=== PATIENT | female | born 1940 | race Caucasian/White ===

== ENCOUNTER 2020-07-02 10:45 | Outpatient (REF) | payer MEDICARE, OTHER, SELFPAY ==
--- NOTE | 2020-07-02 13:46 | MHC.AU.ANO ---
Adult Audiological Evaluation Date of Visit: 07/02/20 Reason for Appointment: Patient has been experiencing increasing hearing difficulty over the last several years. She finds that she needs repetition more frequently. Her family has been expressing frustration during conversations. Patient feels her left ear is worse than the right. She has tried using a personal amplifier, and finds that it made many sounds too loud. Hearing Handicap Inventory: HHIE SCORE: 22 Based on HHIE score, patient has: Mild to moderate perceived hearing handicap Ear History: Ear Deformity: None Reported Recent Ear Drainage: None Reported Recent Ear Pain: None Reported Recent Ear Infections: None Reported Ear Infections in Childhood: None Reported History of Ear Wax Buildup: None Reported Previous Ear Surgery: None Reported Bothersome Tinnitus/Ringing/Noises in Ears: Left Ear Ear used on the phone: Right Ear Blocked/Full Sensation in Ear(s): Left Ear History of occupational noise exposure?: No History: No Otoscopy: Right Ear: Unremarkable Left Ear: Unremarkable Tympanometry: Tympanometry performed due to: To assess integrity of the middle ear system Right Ear: Normal Middle Ear System (Type A) Left Ear: Normal Middle Ear System (Type A) Hearing Evaluation: Transducer(s) Used: Circumaural Headphones Method: Conventional Audiometry Stimuli Used: Pure Tones Right Ear: Description of Hearing: Mild sloping to moderate and rising to mild sensorineural hearing loss Left Ear: Description of Hearing: Mild sloping to moderate sensorineural hearing loss Speech Recognition Threshold (SRT): Method Used: Recorded Lists Stimuli Used: Spondee Words Right Ear: 45 dBHL Left Ear: 50 dBHL Word Discrimination: Method: Recorded Lists Word Lists Used: NU-6 Right Ear: 88% at 70 dBHL Left Ear: 92% at 70 dBHL Most Comfortable Level (MCL): Right Ear: 70 dBHL Left Ear: 70 dBHL QuickSIN: 7 dB SNR Loss, suggesting mild/moderate difficulty hearing in noise Recommendations: Audiological re-evaluation in one year. See Hearing Aid Evaluation report for more information. Consult with Ear, Nose, and Throat may be warranted to address high frequency asymmetry. Diagnosis: Primary Diagnosis: H90.3 Bilateral Sensorineural Hearing Loss Services Performed: Comprehensive Audiological Evaluation (CPT 98375), Tympanometry (CPT 99457) Signature: Provider: Mike Maloney, [facility]
== END 2020-07-02 10:46 | disposition home or self-care (01) ==
LOC: HO.SH 10:45
PROVIDERS: Visit Provider Internal Medicine
DX: H90.3 Sensorineural hearing loss, bilateral (principal)
CPT/HCPCS: 92557; 92567

== ENCOUNTER 2020-07-02 12:06 | Outpatient (REF) | payer SELFPAY ==
--- NOTE | 2020-07-03 11:49 | MHC.AU.HAS ---
Hearing Aid Evaluation Date of Visit: 07/02/20 Historical Information: Description of Hearing: Right: Mild to moderate and rising to mild sensorineural hearing loss Left: Mild to moderate sensorineural hearing loss Summary: Patient was seen today for audiological evaluation (see report for details). Patient is a candidate for amplification. A demo pair of EdRovereo M50 Trial instruments was tried on today. Patient reported a significant improvement in ease of listening. Patient feels she is ready to pursue amplification. Hearing aid options were discussed. Patient has narrow ear canals. The small vented domes were able to fit in her ears, but seemed as if they may pop out easily. Patient reports that in-ear headphones typically do not stay in her ears. Impressions were taken for cShells (slim tips likely will not work, as canals are too narrow). At the fitting, patient would like to try the cShells and try the domes again to see which one feels/sounds better. Hearing Aid Prescription: Based on the individual?s shared listening needs, communication environments, dexterity, desire for connectivity, and personal preferences, the following prescription for amplification has been made: Right ear: Engraver Pantograph: [employer] Model: Audeo P50-R Battery Size: Rechargeable Color: P1 Clothespin Drier Operator: 0M Type of Mold: cShell Left ear: Engraver Pantograph: Phonak Model: Audeo P50-R Battery Size: Rechargeable Color: P1 Clothespin Drier Operator: 0M Type of Mold: cShell Accessories/Assistive Technology Recommended: Promo code given to Phonak for extra progressive die maker bundle. Action Taken/Action Needed: Earmold Impressions Taken Hearing Fitting to be scheduled when materials arrive Paid $350 deposit. Primary Diagnosis: H90.3 Bilateral Sensorineural Hearing Loss Signature: Provider: Mike Maloney, [facility]
--- NOTE | 2020-07-03 11:50 | MHC.AU.MED ---
Medical Clearance for Hearing Instrumentation Date: 07/03/20 Patient Name: Carolee Montemayor Date of : 1940 Primary Care Provider: Referring Provider: Jose Alejandro Oropeza MD We have seen your patient on 07/02/20 and have determined that they are a candidate for amplification (See accompanying report). Specifically, they would benefit from: Hearing aid use in both ears There is a statute that addresses Medical Evaluation Requirements prior to fitting a patient with a hearing aid. According to [place] statute 265 CMR:6.03(1), (a) General. Except as provided in 265 CMR 6.03(1)(b), a teacher of the hearing impaired shall not sell a hearing aid unless the prospective user has presented to the teacher of the hearing impaired a written statement signed by a licensed physician that states that the patient's hearing loss has been medically evaluated and the patient may be considered a candidate for a hearing aid. The medical evaluation must have taken place within the preceding six months. Please note: Due to the [place] Statute referenced above, we cannot accept a signature other than that of a licensed physician. AUTOMOTIVE TITLE CLERK and PA signatures cannot be accepted. I am in agreement with the above recommendation. There is no medical contraindication for hearing instrumentation. Physician Signature Date Physician Name (Printed)
== END 2020-07-02 12:07 | disposition home or self-care (01) ==
LOC: HO.HAP 12:06
PROVIDERS: Visit Provider Internal Medicine
DX: Z46.1 Encounter for fitting and adjustment of hearing aid (principal); H90.3 Sensorineural hearing loss, bilateral
CPT/HCPCS: 92591

== ENCOUNTER 2020-07-24 11:09 | Outpatient (REF) | payer SELFPAY ==
--- NOTE | 2020-07-28 14:32 | MHC.AU.HFA ---
Hearing Instrument Fitting- Adult- Binaural Date of Visit: 07/24/20 Hearing Instruments Dispensed: Right Ear: Shoe Sprayer: CiraNova Model: Audeo P50-R Serial Number: [id number] Repair Warranty: 10/13/2023 Loss and Damage Warranty: 10/13/2023 Service Plan: 10/13/2023 Battery Size: Rechargeable Color: P1 Wire Hanger: 1M Type of Dome: Cap Dome Type of Mold: cShell 0M sewer pipe offbearer #[id number] Service Warranty 11/13/2020 Type of Wax Guard: w/cap dome- CeruShield, w/cShell- CeruStop Left Ear: Shoe Sprayer: Phonak Model: Audeo P50-R Serial Number: [id number] Repair Warranty: 10/13/2023 Loss and Damage Warranty: 10/13/2023 Service Plan: 10/13/2023 Battery Size: Rechargeable Color: P1 Wire Hanger: 1M Type of Dome: Cap Dome Type of Mold: cShell 0M sewer pipe offbearer #[id number], Service Warranty 11/13/2020 Type of Wax Guard: w/cap dome- CeruShield, w/cShell- CeruStop Summary of Fitting: Patient has narrow canals with a sharp bend. First, cShells were tried. The cShells were a bit bulkier/more visible than expected, as not much could be made to fit inside the ear canal. Feedback protection manager was run. Verifit was performed. Target gain set to 90%, as she felt 100% was too loud. Patient was pleased with the sound of the instruments. She wanted to try receivers w/small domes one more time, as she was concerned about the bulkiness of the cShells. Swapped the cShells out for 1M receivers w/small dome and retention tails. It is possible to get the receivers into the canals, but it takes some maneuvering to get them in place. Once in place, they stay well and patient reports that she hears just as well as with the cShells. Patient exhibited difficulty getting the receivers w/domes in her ears. The left side appeared easier than the right. She was beginning to express frustration and was questioning if she should put the cShells back on; however, she would rather stay with the domes if possible. I showed the patient and her how to change the receivers at home, in case the domes were proving too difficult to insert independently. Hearing aid care and maintenance were discussed. The phone was not paired at this time, as patient began feeling overwhelmed by the amount of information already discussed. If interested, we will pair her phone to the hearing aids at the follow-up. Recommendations: A hearing instrument follow-up was scheduled. Please call our clinic with any questions or concerns. Diagnosis Code(s): Primary Diagnosis: H90.3 Bilateral Sensorineural Hearing Loss Signature: Provider: Mike Maloney, CCC-A
== END 2020-07-24 11:10 | disposition home or self-care (01) ==
LOC: HO.HAP 11:09
PROVIDERS: Visit Provider Internal Medicine
DX: Z46.1 Encounter for fitting and adjustment of hearing aid (principal); H90.3 Sensorineural hearing loss, bilateral
CPT/HCPCS: V5261; V5299

== ENCOUNTER 2020-08-07 10:36 | Outpatient (REF) | payer SELFPAY ==
--- NOTE | 2020-08-07 14:42 | MHC.AU.HFU ---
Hearing Instrument Follow-Up- Binaural Date of Visit: 08/07/20 Right Ear: Casting Room Operator: Phonak Model: Audeo P50-R Serial Number: [id number] Repair Warranty: 10/13/2023 Loss and Damage Warranty: 10/13/2023 Service Plan: 10/13/2023 Battery Size: Rechargeable Color: P1 Carding Utility Tender: 2M Type of Dome: Small Open Dome Type of Mold: cShell 0M hoseman #[id number] Service Warranty 11/13/2020 (not currently being used) Type of Wax Guard: CeruShield Dispensed By: [facility] Date of Fittin07/24/2020 Left Ear: Casting Room Operator: Phonak Model: Audeo P50-R Serial Number: [id number] Repair Warranty: 10/13/2023 Loss and Damage Warranty: 10/13/2023 Service Plan: 10/13/2023 Battery Size: Rechargeable Color: P1 Carding Utility Tender: 2M Type of Dome: Small Open Dome Type of Mold: cShell 0M hoseman #[id number], Service Warranty 11/13/2020 (not currently being used) Type of Wax Guard: CeruShield Dispensed By: [facility] Date of Fittin07/24/2020 Follow-Up Summary: Patient reports the sound of the instruments has been great, and she does not feel adjustments are necessary. Target showed usage of 12+ hours a day. She reports that the receivers are still difficult to put into her ears, and don't seem to go in far enough. Replaced receivers with size 2M, which fit more deeply. Patient was able to insert them more easily. Reviewed volume control button and volume sounds at patient request. Patient would not like the hearing aids paired to her phone at this time. Recommendations: Recommendations: Hearing instrument maintenance in 6 months, or sooner if needed. Diagnosis Code(s): Primary Diagnosis: H90.3 Bilateral Sensorineural Hearing Loss Signature: Provider: Mike Maloney, [facility]
== END 2020-08-07 10:37 | disposition home or self-care (01) ==
LOC: HO.HAP 10:36
PROVIDERS: Visit Provider Internal Medicine
DX: Z13.89 Encounter for screening for other disorder (principal)

== ENCOUNTER 2021-01-01 11:37 | Outpatient (REF) | payer MEDICARE, OTHER, SELFPAY ==
[2021-01-01 14:07] LABS: Hematocrit 42.9 % (37-47); Hemoglobin 14.2 g/dl (12.0-16.0); Mean Corpuscular HGB Conc 33.1 g/dl (31.0-35.0); Mean Corpuscular Hemoglobin 31.8 pg (27.0-33.0); Mean Platelet Volume 9.8 fL (9.4-12.3); Platelet Count 275 X10*3/uL (160-400); Red Blood Count 4.47 X10*6/uL (4.20-5.50); Red Cell Distribution Width 13.2 % (11.0-16.0); White Blood Count 5.1 X10*3/uL (4.8-10.8)
[2021-01-01 14:58] LABS: Thyroid Stimulating Hormone 1.08 uIU/mL (0.32-4.0)
[2021-01-01 15:00] LABS: Alanine Aminotransferase 19 U/L (0-31); Albumin Level 4.1 g/dL (3.5-5.0); Alkaline Phosphatase 70 U/L (39-117); Anion Gap 12 (12-20); Aspartate Amino Transferase 21 U/L (5-31); Bilirubin Direct < 0.2 mg/dL (0.0-0.5); Bilirubin Total 0.4 mg/dL (0.0-1.0); Blood Urea Nitrogen 14 mg/dL (9-16); Calcium 9.4 mg/dL (8.4-10.2); Carbon Dioxide 30 mmol/L (22-29); Chloride 102 mmol/L (96-108); Cholesterol 233 mg/dL; Estimated Glomerular Filt Rate > 60; Glucose Random 69 mg/dL (60-115); HDL Cholesterol 113 mg/dL; LDL Cholesterol Calculated 104 mg/dl; Potassium 4.4 mmol/L (3.3-5.1); Sodium 140 mmol/L (135-145); Total Protein 6.5 g/dL (6.5-8.0); Triglycerides 84 mg/dL
== END 2021-01-01 11:38 | disposition home or self-care (01) ==
LOC: HO.10HDL 11:37
PROVIDERS: Visit Provider Internal Medicine
DX: F41.1 Generalized anxiety disorder (principal)
CPT/HCPCS: 36415; 80048; 80061; 80076; 84443; 85027

== ENCOUNTER 2021-01-02 11:04 | Outpatient (REF) | payer SELFPAY ==
--- NOTE | 2021-01-02 13:12 | MHC.AU.HFU ---
Hearing Instrument Follow-Up- Binaural Date of Visit: 01/02/21 Right Ear: Crane Manager: Phonak Model: Audeo P50-R Serial Number: [id number] Repair Warranty: 10/13/2023 Loss and Damage Warranty: 10/13/2023 Service Plan: 10/13/2023 Battery Size: Rechargeable Color: P1 Furniture Servicer: 2M Type of Dome: Small Open Dome Type of Mold: cShell 0M iuss master analyst #[id number] Service Warranty 11/13/2020 (not currently being used) Type of Wax Guard: CeruShield Dispensed By: [facility] Date of Fittin07/24/2020 Left Ear: Crane Manager: Phonak Model: Audeo P50-R Serial Number: [id number] Repair Warranty: 10/13/2023 Loss and Damage Warranty: 10/13/2023 Service Plan: 10/13/2023 Battery Size: Rechargeable Color: P1 Furniture Servicer: 2M Type of Dome: Small Open Dome Type of Mold: cShell 0M iuss master analyst #[id number], Service Warranty 11/13/2020 (not currently being used) Type of Wax Guard: CeruShield Dispensed By: [facility] Date of Fittin07/24/2020 Follow-Up Summary: Patient arrived for hearing aid maintenance. Hearing aids were inspected. Wax guards and domes replaced. Receivers cleaned. Microphones vacuumed. Shell cleaned. Hearing aids are amplifying clearly. Recommendations: Recommendations: Hearing instrument follow-up or maintenance as needed. Recommendations (Other): Audio R/V in July 2021. Diagnosis Code(s): Primary Diagnosis: H90.3 Bilateral Sensorineural Hearing Loss Signature: Provider: Mike Maloney, [facility]
== END 2021-01-02 11:05 | disposition home or self-care (01) ==
LOC: HO.HAP 11:04
PROVIDERS: Visit Provider Internal Medicine
DX: Z13.89 Encounter for screening for other disorder (principal)

== ENCOUNTER 2021-02-21 23:45 | Emergency (ER) | payer MEDICARE, OTHER, SELFPAY ==
--- NOTE | ~2021-02-21 | CT_ITS ---
EXAMINATION: CT ANGIOGRAM OF THE CHEST WITH AND WITHOUT CONTRAST (CT PULMONARY ANGIOGRAM FOR PE) CLINICAL INFORMATION: Reason for Exam sob, elevated dimer COMPARISON: None TECHNIQUE: Prior to contrast administration, noncontrast localization images were obtained. Subsequently, multidetector volumetric imaging was performed from the thoracic inlet to below the diaphragms following the administration of 65 mL Omnipaque 350 intravenous contrast. No contrast reaction reported Sagittal, coronal, and MIP oblique sagittal reformatted images were obtained on the CT workstation, uploaded to PACS, and reviewed. This CT examination was performed using dose optimization techniques as appropriate, variously including the following: *Automated exposure control *Adjustment of mA and/or kV according to patient size (this includes techniques or standardized protocols for targeted exams where dose is matched to indication/reason for exam; i.e. extremities or head) *Use of iterative reconstruction technique Total exam dose-length product 247 mGy-cm FINDINGS: QUALITY OF STUDY/CONTRAST BOLUS: Satisfactory. PULMONARY ARTERIES: No central or segmental pulmonary emboli. THORACIC AORTA: No aneurysm or dissection. LUNG: The central airways are patent. Patchy peripheral groundglass opacities are seen in both lower lungs, left greater than right. Cystic changes are seen in the left lower lobe. PLEURA: No pleural effusion or pneumothorax. MEDIASTINUM: Normal heart size. No pericardial effusion. No hilar or mediastinal lymphadenopathy. No evidence of septal bowing or right heart strain. CHEST WALL/AXILLA: No axillary or internal mammary lymphadenopathy. OSSEOUS STRUCTURES: No acute or suspicious osseous abnormality. Scoliotic curvature of the spine with mild degenerative change. UPPER ABDOMEN: 1 cm simple cyst at the dome of the left lobe of the liver. No acute abnormality of the visualized upper abdomen. No reflux of contrast into the hepatic veins to suggest elevated right heart pressures. CT/CT angio chest PE protocol IMPRESSION: 1. No pulmonary embolism. 2. Groundglass opacities are seen in both lower lungs with mostly peripheral distribution. This is suspicious for infectious process. Correlate for Covid. VTE: negative
--- NOTE | ~2021-02-21 | XR_ITS ---
EXAMINATION: XR CHEST CLINICAL INFORMATION: Shortness of breath. COMPARISON: Chest radiograph dated from 04/05/2016. TECHNIQUE: AP view of the chest was obtained. FINDINGS: Normal appearance of the cardiomediastinal silhouette. Focal airspace opacities in the left lower lobe. No pleural effusions or pneumothorax. No acute osseous findings. XR/XR chest 1V IMPRESSION: Airspace opacities in the left lower lobe concerning for a focal pneumonia in the appropriate clinical context.
[2021-02-21 23:52] VITALS: PULSE 100; RESP 18; TEMP 36.9; O2SAT 98; BMI 19.5
[2021-02-21 23:58] VITALS: PULSE 96; RESP 18; O2SAT 98
--- NOTE | 2021-02-22 00:01 | ECG_ITS ---
Test Reason : SOB Blood Pressure : / mmHG Vent. Rate : 091 BPM Atrial Rate : 091 BPM P-R Int : 166 ms QRS Dur : 078 ms QT Int : 382 ms P-R-T Axes : 044 026 053 degrees QTc Int : 469 ms Normal sinus rhythm Minimal voltage criteria for LVH, may be normal variant ( Sokolow-Davis ) Borderline ECG When compared with ECG of 14-DEC-2007 13:58, QT has lengthened Referred By: Heather Kate Electronically Signed By:MURIEL SANTOS MD
[2021-02-22 00:12] LABS: Basophils Percent Auto 0.2 % (0-2); Eosinophils Percent Auto 0.2 % (0-4); Hemoglobin 14.7 g/dl (12.0-16.0); Imm Gran Abs Auto 0.02 X10*3/uL (0.00-0.03); Imm Gran Pct Auto 0.4 % (0.0-0.4); Lymphocytes Absolute Auto 1.1 X10*3/uL (1.2-4.9); Lymphocytes Percent Auto 24.5 % (20-40); MANUAL DIFF FLAG SCAN; Mean Corpuscular Hemoglobin 31.9 pg (27.0-33.0); Mean Corpuscular Volume 91.1 fL (80.0-98.0); Monocytes Absolute Auto 0.4 X10*3/uL (0.1-1.2); Monocytes Percent Auto 8.7 % (2-11); Neutrophils Absolute Auto 3.1 x10*3/uL (2.0-8.3); Platelet Count 272 X10*3/uL (160-400); Red Blood Count 4.61 X10*6/uL (4.20-5.50); Red Cell Distribution Width 12.4 % (11.0-16.0); SCAN SMEAR FLAG 1; White Blood Count 4.6 X10*3/uL (4.8-10.8)
[2021-02-22 00:24] LABS: D Dimer High Sensitivity 396 NG/ML
[2021-02-22 00:30] LABS: Alanine Aminotransferase 30 U/L (0-31); Albumin Level 3.7 g/dL (3.5-5.0); Alkaline Phosphatase 75 U/L (39-117); Anion Gap 14 (12-20); Aspartate Amino Transferase 30 U/L (5-31); Bilirubin Direct 0.2 mg/dL (0.0-0.5); Bilirubin Total 0.4 mg/dL (0.0-1.0); Blood Urea Nitrogen 15 mg/dL (9-16); Calcium 8.8 mg/dL (8.4-10.2); Carbon Dioxide 26 mmol/L (22-29); Chloride 102 mmol/L (96-108); Estimated Glomerular Filt Rate > 60; Glucose Random 143 mg/dL (60-115); Potassium 3.5 mmol/L (3.3-5.1); Sodium 138 mmol/L (135-145); Total Protein 6.2 g/dL (6.5-8.0)
[2021-02-22 00:31] LABS: SLIDE REVIEW VERIFIED
[2021-02-22 00:35] LABS: B Type Natriuretic Peptide 18 pg/mL (<100); Troponin-I High Sensitivity 3.7 ng/L (<3.5-17.0)
--- NOTE | 2021-02-22 00:46 | ED.SOB ---
HPI - SOB/Dyspnea General Chief Complaint: Dyspnea Stated Complaint: +COVID,SOB Time Seen by Provider: 02/22/21 00:00 Source: patient and EMS Mode of arrival: EMS Limitations: no limitations History of Present Illness HPI Narrative: Patient comes emergency room complaining of shortness of breath. Patient states she was diagnosed with COVID-19 approximately a week ago. Patient states that in the last few days she has been having trouble sleeping and feels short of breath. Patient denies chest pain. Patient complaining of productive cough. Patient denies fever chills. Related Data Previous Rx's Medication Instructions Recorded citalopram 10 mg tablet 10 mg PO DAILY #90 tab 01/01/21 lorazepam 0.5 mg tablet 0.5 mg PO BEDTIME #30 tab 01/01/21 trazodone 50 mg tablet 50 mg PO BEDTIME #90 tab 01/01/21 benzonatate 200 mg capsule 200 mg PO BID-TID PRN 7 Days #14 02/18/21 cap codeine 10 mg-guaifenesin 100 mg/5 5 ml PO Q6H PRN #118 ml 02/22/21 mL oral liquid (Guaifenesin AC) Allergies Allergy/AdvReac Type Severity Reaction Status Date / Time No Known Allergies Allergy Mild NONE Unverified 01/01/21 10:52 Review of Systems Review of Systems: Constitutional : No Weight loss, No Fever, No Chills, No Night Sweats, No Fatigue, No Malaise ENT/Mouth : No Hearing loss, No Ear Pain, No Nasal Congestion, No Sinus Pain, No Hoarseness, No sore throat, No Rhinorrhea, No Swallowing Difficulty Eyes: No Eye Pain, No Swelling, No Redness, No Foreign Body, No Discharge, No Vision Changes Cardiovascular : Complaining of cough, shortness of breath, no chest pain No Orthopnea, No Edema, No Palpitations Respiratory : Complaining of cough with sputum, No Wheezing, No Smoke Exposure, No Dyspnea Gastrointestinal : No Nausea, No Vomiting, No Diarrhea, No Constipation, No abdominal Pain, No Hematochezia, No Melena Genitourinary : no irregular bleeding, No Dysuria, No Urinary Frequency, No Hematuria, No Urinary Incontinence, No Urgency, No Flank Pain, No Urinary Flow Changes, No Hesitancy Musculoskeletal : No joint pain, No Myalgias, No Joint Swelling Skin : No Skin Lesions, No rash Neuro : No Weakness, No Numbness, No Paresthesias, No Loss of Consciousness, No Dizziness, No Headache Psych : Complaining of feeling anxious, No Depression, No SI/HI/AH/VH, No Social Issues, Heme/Lymph: No Bruising, No Bleeding,No Lymphadenopathy Endocrine : No Polyuria, No Polydipsia, No Temperature Intolerance PMFSH Past Medical History Medical History Generalized anxiety disorder Surgical History History of hysterectomy Family History Family History Mother No problems noted. Father No problems noted. Social History Social History Housing: House Alcohol intake: current Alcohol intake frequency: holidays/special occasions only Patient Tobacco Use Status: Former Tobacco user e-Cigarette/Vaping Use: Never Used Second Hand Smoke Exposure: No Advance Directives: No Advance Directives Information Provided: No service: No Current occupational status: retired Physical Exam Vital Signs: Vital Signs: Last Vital Signs Temp 99.2 F 02/22/21 02:14 Pulse 95 02/22/21 02:14 Resp 18 02/22/21 02:14 BP 156/72 H 02/22/21 02:14 Pulse Ox 96 02/22/21 02:17 BMI result Body Mass Index 19.5 Const: Other: Appearance: Alert. Oriented X3. No acute distress. Seems anxious Eyes: Pupils equal, round and reactive to light. ENT: Pharynx normal. Neck: Normal inspection. Neck supple. No lymph nodes noted. No crepitus CVS: Normal heart rate and rhythm. Pulses normal. Normal S1 and S2 Respiratory: No respiratory distress. Breath sounds normal. No Wheezing. No rales Abdomen: Soft and nontender. No rigidity. No distention. good BS x4 Skin: Skin warm and dry. Normal skin color. Normal skin turgor. Extremities: No lower extremity edema. No Lacerations. No Rash Neuro: Oriented X 3. No motor deficit. No sensory deficit. Moving all extermities. No slurred speech. Course Course Course Narrative: Patient is COVID positive. D-dimer is slightly elevated, CTA for PE study pending. Patient is not hypoxic. Sepsis is not suspected. Anticipating discharge home. Patient was ambulated, oxygen saturation remained at 96% on room air while walking. Patient states that she feels short of breath while walking but her oxygen saturation did not drop. Patient is not septic. CT scan does not show signs of pneumonia. Patient was given 1 dose of Decadron . Patient has been having symptoms for over 10 days now. Patient is no longer a candidate for monoclonal antibodies for COVID-19. I discussed the patient with our hospitalist, patient does not meet criteria for admission. MDM - SOB/Dyspnea Lab Data Result diagrams: 02/22/21 00:06 02/22/21 00:06 Labs: Lab Results 02/22/21 02/22/21 02/22/21 Range/Units 00:06 00:06 00:06 WBC 4.6 L (4.8-10.8) X10*3/uL RBC 4.61 (4.20-5.50) X10*6/uL Hgb 14.7 (12.0-16.0) g/dl Hct 42.0 (37.0-47.0) % MCV 91.1 (80.0-98.0) fL MCH 31.9 (27.0-33.0) pg MCHC 35.0 (31.0-35.0) g/dl RDW 12.4 (11.0-16.0) % Plt Count 272 (160-400) X10*3/uL MPV 9.0 L (9.4-12.3) fL Immature Gran % (Auto) 0.4 (0.0-0.4) % Neut % (Auto) 66.0 (45-73) % Lymph % (Auto) 24.5 (20-40) % [place] % (Auto) 8.7 (2-11) % Eos % (Auto) 0.2 (0-4) % Baso % (Auto) 0.2 (0-2) % Lymph # (Auto) 1.1 L (1.2-4.9) X10*3/uL [place] # (Auto) 0.4 (0.1-1.2) X10*3/uL Eos # (Auto) 0.0 (0.0-0.4) X10*3/uL Baso # (Auto) 0.0 (0.0-0.2) X10*3/uL Abs Immat Gran (auto) 0.02 (0.00-0.03) X10*3/uL Absolute Neuts (auto) 3.1 (2.0-8.3) x10*3/uL Absolute Nucleated RBC 0.000 (0.0-0.012) X10*3/uL Nucleated RBC % (auto) 0.0 (0.0-0.2) /100WBC Smear Tech's Comments VERIFIED D-Dimer High Sensitivty 396 NG/ML Sodium 138 (135-145) mmol/L Potassium 3.5 D (3.3-5.1) mmol/L Chloride 102 (96-108) mmol/L Carbon Dioxide 26 (22-29) mmol/L Anion Gap 14 (12-20) BUN 15 (9-16) mg/dL Creatinine 0.64 (0.5-1.4) mg/dL Estim Creat Clear Calc 57.0 Estimated GFR > 60 Random Glucose 143 H (60-115) mg/dL Calcium 8.8 D (8.4-10.2) mg/dL Total Bilirubin 0.4 (0.0-1.0) mg/dL Direct Bilirubin 0.2 (0.0-0.5) mg/dL AST 30 D (5-31) U/L ALT 30 (0-31) U/L Alkaline Phosphatase 75 (39-117) U/L Troponin I High Sens (<3.5-17.0) ng/L B-Natriuretic Peptide (<100) pg/mL Total Protein 6.2 L (6.5-8.0) g/dL Albumin 3.7 (3.5-5.0) g/dL COVID-19 (SHERYL) (Negative) COVID-19 Clin Com 02/22/21 02/22/21 Range/Units 00:06 00:15 WBC (4.8-10.8) X10*3/uL RBC (4.20-5.50) X10*6/uL Hgb (12.0-16.0) g/dl Hct (37.0-47.0) % MCV (80.0-98.0) fL MCH (27.0-33.0) pg MCHC (31.0-35.0) g/dl RDW (11.0-16.0) % Plt Count (160-400) X10*3/uL MPV (9.4-12.3) fL Immature Gran % (Auto) (0.0-0.4) % Neut % (Auto) (45-73) % Lymph % (Auto) (20-40) % [place] % (Auto) (2-11) % Eos % (Auto) (0-4) % Baso % (Auto) (0-2) % Lymph # (Auto) (1.2-4.9) X10*3/uL [place] # (Auto) (0.1-1.2) X10*3/uL Eos # (Auto) (0.0-0.4) X10*3/uL Baso # (Auto) (0.0-0.2) X10*3/uL Abs Immat Gran (auto) (0.00-0.03) X10*3/uL Absolute Neuts (auto) (2.0-8.3) x10*3/uL Absolute Nucleated RBC (0.0-0.012) X10*3/uL Nucleated RBC % (auto) (0.0-0.2) /100WBC Smear Tech's Comments D-Dimer High Sensitivty NG/ML Sodium (135-145) mmol/L Potassium (3.3-5.1) mmol/L Chloride (96-108) mmol/L Carbon Dioxide (22-29) mmol/L Anion Gap (12-20) BUN (9-16) mg/dL Creatinine (0.5-1.4) mg/dL Estim Creat Clear Calc Estimated GFR Random Glucose (60-115) mg/dL Calcium (8.4-10.2) mg/dL Total Bilirubin (0.0-1.0) mg/dL Direct Bilirubin (0.0-0.5) mg/dL AST (5-31) U/L ALT (0-31) U/L Alkaline Phosphatase (39-117) U/L Troponin I High Sens 3.7 (<3.5-17.0) ng/L B-Natriuretic Peptide 18 (<100) pg/mL Total Protein (6.5-8.0) g/dL Albumin (3.5-5.0) g/dL COVID-19 (SHERYL) Positive A (Negative) COVID-19 Clin Com See Note Discharge Plan Discharge Clinical Impression: Acute dyspnea, COVID-19 Patient Disposition: Home, Self-Care Instructions: Dyspnea (ED) Additional Instructions: Please follow-up with your primary care physician tomorrow. If you have any worsening or new symptoms, please return to the emergency room or call 911 Prescriptions: New codeine-guaifenesin [Guaifenesin AC] 10-100 mg/5 mL liquid 5 ml PO Q6H PRN (Reason: cough) Qty: 118 RF: 0 No Action benzonatate 200 mg capsule 200 mg PO BID-TID PRN (Reason: cough) 7 Days Qty: 14 RF: 0 citalopram 10 mg tablet 10 mg PO DAILY Qty: 90 RF: 1 lorazepam 0.5 mg tablet 0.5 mg PO BEDTIME Qty: 30 RF: 0 trazodone 50 mg tablet 50 mg PO BEDTIME Qty: 90 RF: 1
[2021-02-22 00:47] LABS: COVID-19 Test Positive (Negative)
[2021-02-22] MEDS: iohexoL 350 MG/ML 100 ML INFUS..BTL 65 ML IV (01:49)
[2021-02-22 02:14] VITALS: BP 156/72; PULSE 95; RESP 18; TEMP 37.3; O2SAT 99
[2021-02-22 02:17] VITALS: O2SAT 96
[2021-02-22] MEDS: dexAMETHasone sod phosphate 4 MG/ML VIAL 6 MG IVPUSH (02:33)
== END 2021-02-22 03:58 | disposition home or self-care (01) ==
PROVIDERS: Emergency Provider Emergency Medicine
DX: U07.1 COVID-19 (principal); R06.02 Shortness of breath
CPT/HCPCS: 36415; 71045; 71275; 80048; 80076; 83880; 84484; 85025; 85379; 87635; 93005; 96374; 99284; J1100; Q9967

== ENCOUNTER 2022-09-16 10:12 | Outpatient (AMB) | payer MEDICARE, OTHER, SELFPAY ==
--- NOTE | 2022-09-16 10:38 | MHC.PC.OV ---
Vital Signs 09/16/22 10:39 Height 5 ft 3 in Weight 122 lb BMI 21.6 BP 110/80 Blood Pressure Location Lt brachial Position Sitting Pulse 66 Pulse Source Pulse Oximeter Pulse Oximetry (%) 98 Oxygen Delivery Method Room Air Intake Visit Reasons: f/u HTN Intake Note: Patient is here to follow up on HTN, lag and back pain. 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 Patient is reporting that her back pain symptoms are not improving. She has been having low back pain and left hip pain for the past few months. Nonsteroidals and physical therapy have not relieved her symptoms. Pain worsens on ambulation. Relieved at rest or lying down. [facility] Medical History Generalized anxiety disorder Surgical History History of hysterectomy Family History Mother No problems noted. Father No problems noted. Social History Housing: House Alcohol intake: current Alcohol intake frequency: holidays/special occasions only Patient Tobacco Use Status: Former Tobacco user e-Cigarette/Vaping Use: Never Used Second Hand Smoke Exposure: No service: No Current occupational status: retired Cognitive needs: No Hearing needs: Yes (Hearing aide) Vision needs: No Questionnaire Thrive Questionnaire Date Thrive assessed: 07/29/22 ALEX-7 AMB Questionnaire ALEX-7 Date ALEX - 7 assessed: 07/29/22 Source: Developed by Drs. Bill Alvarez, Xochitl Hammer, Enrrique Keenan and colleagues, with an educational ab from [employer]. Physical exam (Primary Care) Vital Signs: Last Vital Signs Pulse 66 09/16/22 10:39 BP 110/80 09/16/22 10:39 Pulse Ox 98 09/16/22 10:39 Oxygen Delivery Method Room Air 09/16/22 10:39 BMI result Body Mass Index 21.6 Tobacco/Smoking Status: Tobacco use Status Tobacco use date assessed 09/16/22 09/16/22 10:42 Patient Tobacco Use Status Former Tobacco user 09/16/22 10:42 e-Cigarette/Vaping Use Never Used 09/16/22 10:42 Thrive Assessment: Date of Thrive Assessment Date Thrive assessed 07/29/22 09/16/22 10:42 Const General: cooperative, healthy appearing and comfortable HENMT Head: Yes normal to inspection and Yes atraumatic Eyes General: appearance normal, both eyes and all related structures Neck Neck: Yes normal visual inspection and Yes full ROM Chest Chest palpation & inspection: normal inspection of the chest Resp Effort & Inspection: normal respiratory effort Auscultation: clear to auscultation bilaterally Cardio Jugular venous distension: no JVD Palpation: normal PMI Rate: regular rate Heart sounds: S1 normal heart sound present and S2 normal heart sound present GI Palpation (GI): Soft to palpation and No hepatosplenomegaly present Extrem General: Yes normal to inspection and Yes full ROM Assessment and Plan Assessment & Plan (1) Lower thoracic back pain: Code(s): M54.6 - Pain in thoracic spine Plan: Patient's spine warrants an evaluation. An MRI of the back has been ordered. Diskitis and inflammation should be ruled out. Orders: Orders MR lumbar spine wo/w con Today M46.46 - Discitis, unspecified, lumbar region Medications: Refilled meloxicam 15 mg PO DAILY 14 tabs 0RF cyclobenzaprine 10 mg PO BEDTIME 14 tabs 0RF Coding Level of Care Code Est Pt Level 4 (15769) Diagnoses Lower thoracic back pain M54.6
[2022-09-16 10:39] VITALS: BP 110/80; PULSE 66; O2SAT 98; BMI 21.6
== END 2022-09-16 12:20 | disposition home or self-care (01) ==
PROVIDERS: PCP Internal Medicine; Visit Provider Internal Medicine
DX: M54.6 Pain in thoracic spine (principal)
CPT/HCPCS: 99214

== ENCOUNTER 2022-10-02 10:12 | Outpatient (REF) | payer MEDICARE, OTHER, SELFPAY ==
--- NOTE | ~2022-10-02 | MR_ITS ---
EXAMINATION: MR LUMBAR SPINE WITHOUT CONTRAST CLINICAL INFORMATION: Left leg radiculopathy and low back pain. COMPARISON: None. TECHNIQUE: Multiplanar, multisequence imaging was obtained. FINDINGS: VERTEBRAL BODIES AND PARASPINAL STRUCTURES: There is a leftward curvature of the spine centered at the L2 level. The marrow signal is mildly heterogeneous with regions of fatty change. Chronic superior endplate compression deformities noted at the T12-L2 level with a mild loss of vertebral body height. The paraspinal soft tissues are normal. There are mixed chronic and mild edematous endplate changes at the L3-L4, L4-L5, and L5-S1 levels with zxljtijt-db-ajevbf loss of disc height at L4-L5 and L5-S1. No acute compression fractures are seen. 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 The largest Tarlov cyst in the right S2 neural foramen measures 2.5 x 2.2 cm. CONUS MEDULLARIS AND CAUDA EQUINE: The distal cord, conus tip, and cauda equina nerve roots are normal. SPINAL LEVELS: L1-L2: Reduced intradiscal signal and very mild disc bulge without central canal stenosis or foraminal narrowing. L2-L3: Disc degeneration and moderate loss of disc height with endplate spurring. Broad-based disc bulge and mild facet arthropathy without central canal stenosis. Mild foraminal narrowing. L3-L4: Broad-based disc bulge and facet arthropathy with mild right foraminal encroachment. Bulging disc abuts but does not distort the exiting right L3 nerve root. Wanh-xz-lpavmczz facet arthropathy and mild central canal stenosis. L4-L5: Xiabnmre-qo-bputvv loss of disc height and broad-based central to left subarticular zone disc protrusion impressing upon the ventral thecal sac and resulting in mass effect upon the left greater than right L5 nerve roots. Hypertrophic facet arthropathy and mild central canal stenosis with a slight retrosubluxation. Mild bilateral foraminal narrowing. L5-S1: Utplbnlb-ej-eammmg loss of disc height with a generalized disc bulge. A 1.5 x 0.8 cm cystic focus which appears to be associated with the disc with mass effect upon the left S1 nerve root in the subarticular zone and lateral recess. Moderate facet arthropathy. No central canal stenosis. Severe bilateral foraminal encroachment due to bulging disc and osseous spurring. MR/MR lumbar spine wo con IMPRESSION: 1. Leftward degenerative curvature of the spine centered at the L2 level with ipwd-pr-nvbvtgrz spondylitic changes at the L2-L3 and L3-L4 levels. 2. Broad-based central to left subarticular zone disc protrusion at L4-L5 with mass effect upon the left greater than right L5 nerve roots bilaterally. Mild central canal stenosis. 3. Anbqcnbi-eu-jugwwb degenerative disc disease at the L5-S1 level with a 1.5 x 0.8 cm cystic focus associated with the disc resulting in mass effect upon the left S1 nerve root in the subarticular zone and lateral recess. This finding may represent a discal cyst. Severe bilateral foraminal narrowing.
== END 2022-10-02 10:13 | disposition home or self-care (01) ==
LOC: HO.MRI 10:12
PROVIDERS: PCP Internal Medicine; Visit Provider Internal Medicine
DX: M46.46 Discitis, unspecified, lumbar region (principal)
CPT/HCPCS: 72148

== ENCOUNTER 2022-10-27 10:17 | Outpatient (REF) | payer MEDICARE, OTHER, SELFPAY ==
--- NOTE | ~2022-10-27 | XR_ITS ---
EXAMINATION: XR LUMBOSACRAL SPINE WITH OBLIQUES CLINICAL INFORMATION: Low back pain. COMPARISON: MR lumbar spine 09/02/2022, lumbar spine radiographs 03/15/2017 TECHNIQUE: AP, lateral, flexion and extension views of the lumbar spine. FINDINGS: There is loss of normal lumbar lordosis and a scoliosis convex to the left. Degenerative changes are noted throughout the entire lumbar spine most marked at L4-L5 and L5-S1. There is compression of the superior endplate of L2 consistent with a Schmorl's node. No fractures or bony destructive lesions are seen. No instability is seen with flexion and extension which demonstrate minimal motion. No significant interval change has occurred when compared to the 03/15/2017 plain film radiographs. XR/XR lumbar spine 4V min IMPRESSION: Degenerative changes in the lumbar spine as described above without significant change when compared to 2018.
== END 2022-10-27 10:18 | disposition home or self-care (01) ==
LOC: HO.HOSX 10:17
PROVIDERS: PCP Internal Medicine; Visit Provider Physician Assistant
DX: M54.50 Low back pain, unspecified (principal)
CPT/HCPCS: 72110; 99202

== ENCOUNTER 2022-10-27 10:17 | Outpatient (AMB) | payer MEDICARE, OTHER, SELFPAY ==
--- NOTE | 2022-10-27 10:34 | HO.SPINEOV ---
Intake Intake Visit Reasons: DJD loss of disc space L4-L5 Intake Note: Mrs. Montemayor is here today due to degenerative disc disease. MRI done @ [facility] – [place]. 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 She is a pleasant 82 year old female who comes in with a CC of low back pain and radiation of symptoms down her left hip/groin to the lateral side of her L lower leg. She does endorse some intermittent numbess / tingling in the lateral side of her L leg, but states she only has pain in regards to her low back, left hip, and left groin. She states that she had similar pain with radiation of symptoms 5 years ago, which resolved on its own. She reports no inciting incident causing her low back pain, and reports that one day in June of this year her pain simply returned, and has not gone away since. She reports trying to utilize OTC remedies such as Tylenol, ibuprofen, ice, rest, heat, and pain patches without alleviation of symptoms. She also recently went to PT in July and completed 8 weeks of therapy without allevaition. She had a recent MRI completed after being referred by her PCP when she failed conservative measures and PT. She does endorse alleviation of symptoms with bending over, holding a shopping cart while walking in the grocery store, sitting down, and resting. She states that standing and walking without support for prolonged periods of time aggravate her symptoms. PMH: Generalized anxiety disorder, low back pain, high blood pressure. Social hx: No tobacco use, no alcohol use. No recreational substance use disclosed. Medications: Citalopram, cyclobenzaprine, lisinopril, lorazepam, meloxicam, trazodone. Allergies: NKDA Physical exam: The patient has 5/5 strength in her bilateral lower extremities. She has 2+ reflexes with the exception of some hyper-reflexia noted bilterally when testing patellar reflexes. Sensation grossly intact. (-) Babinski, (-) Clonus, (-) Titus's. Straight leg raise is (+) on the L and (-) on the right. Imaging review: 10/02/22 MRI lumbar spine reviewed. Moderate central canal stenosis from L2-S1. Severe L4-5 lateral recess stenosis, L side greater than right. Flexion/Extension X-rays reviewed, Impression: Carolee is a 82-year-old female who comes in with a chief complaint of low back for the past 5 years, with exacerbation of symptoms in June of this year. She presents the story that is classic for spinal stenosis with neurogenic claudication. Her symptoms are not classic L5 distribution, affecting her low back left hip left groin and left lateral lower leg. After reviewing MRI imaging and x-rays with Dr. Rodrigues he offered the patient an left-sided L4-5 foraminotomy to help alleviate compression in the left lateral recess of the exiting nerve root. She is agreeable to this plan, and was scheduled for surgery on December 09. Carolee was given risk and benefits of surgery including but not limited to infection, hematoma, nerve injury, durotomy, weakness, bowel/bladder injury, persistent pain. We also discussed the option to continue with conservative treatment and patient wishes to proceed with surgery. The patient is aware she should stop Meloxicam 7 days prior to surgery. All questions were answered to the best of our ability. If there is anything about this patients medical history that we have overlooked or concerns you have about us proceeding with surgery we would appreciate any input you can offer. Thank you for allowing us to care for your patient. The total time spent with this visit with this patient was 60 minutes reviewing history, physical exam, MRI / X-ray imaging review, and implementation of treatment plan or further diagnostic testing Nick Rodrigues MD,PhD [facility] Orders: Orders XR lumbar spine 4V min Today M54.50 - Low back pain, unspecified Coding Level of Care Code New Pt Level 5 (14285) Diagnoses Lumbar stenosis with neurogenic claudication M48.062 Time Spent (min) 60
== END 2022-10-27 11:59 | disposition home or self-care (01) ==
PROVIDERS: PCP Internal Medicine; Referring Provider Internal Medicine; Visit Provider Physician Assistant
DX: M48.062 Spinal stenosis, lumbar region with neurogenic claudication (principal)
CPT/HCPCS: 99205

== ENCOUNTER 2022-11-17 10:26 | Outpatient (AMB) | payer MEDICARE, OTHER, SELFPAY ==
--- NOTE | 2022-11-17 10:30 | AM.OFFWIN_ITS ---
Intake Vital Signs 11/17/22 10:31 Weight 120 lb BP 110/78 Blood Pressure Location Lt brachial Position Sitting Pulse 70 Pulse Source Pulse Oximeter Pulse Oximetry (%) 97 Oxygen Delivery Method Room Air Intake Visit Reasons: EST/right side shoulder pain Intake Note: Patient here for right shoulder pain, she is unable to lift it or move it forward which has been bothersome for about 10 days. Patient Tobacco Use Status: Former Tobacco user Allergies No Known Allergies Allergy (Mild, Verified 11/20/22 11:17) NONE Medication List - Last Reconciled 11/20/22 by Jose Alejandro Oropeza MD citalopram 10 mg PO DAILY cyclobenzaprine 10 mg PO BEDTIME lisinopril 5 mg PO DAILY lorazepam 0.5 mg PO BEDTIME meloxicam 15 mg PO DAILY trazodone 50 mg PO BEDTIME Do you need a note to return to daycare/school/sports/work: No HPI EST/right side shoulder pain HPI Details 82-year-old female presents to the [facility] for a sick visit. Patient is reporting pain in the right shoulder. Her intense pain that does not allow her to move her arm. Does not recall any fall or injury. Symptoms present for the last 2 weeks. [facility] Medical History Generalized anxiety disorder Surgical History History of hysterectomy Family History Mother No problems noted. Father No problems noted. Social History Housing: House Alcohol intake: current Alcohol intake frequency: holidays/special occasions only Patient Tobacco Use Status: Former Tobacco user e-Cigarette/Vaping Use: Never Used Second Hand Smoke Exposure: No service: No Current occupational status: retired Cognitive needs: No Hearing needs: Yes (Hearing aide) Vision needs: No Physical Exam Vital Signs: Last Vital Signs Pulse 70 11/17/22 10:31 BP 110/78 11/17/22 10:31 Pulse Ox 97 11/17/22 10:31 Oxygen Delivery Method Room Air 11/17/22 10:31 Const General: cooperative and healthy appearing Nutritional Appearance: well nourished Orientation/consciousness: patient oriented x3 Limitations: no limitations HEENT Head: Yes normal to inspection Eyes General: appearance normal, both eyes and all related structures Neck Neck: Yes normal visual inspection Chest Chest palpation & inspection: normal palpation of entire chest wall Resp Effort & Inspection: normal respiratory effort Neuro General: patient oriented x3 Extrem Other: Right shoulder: Wasting of the deltoid muscle. Unable to abduct the arm greater than 15 degrees. Full adduction, internal and external rotation. Office Meds ketorolac 60 mg/2 mL intramuscular solution Performing Provider: Jose Alejandro Oropeza MD Performing Location: [facility] Administered by: Linda Montilla RN on 11/17/22 11:48 Dose Route Admin Location Dispensed Lot Number Expiration Date NDC Contact Officer 60 mg IM Left gluteus 2.0 mL [id number] 06/04/23 33777-996-57 [employer] Comments: Instructed pt to refrain from OTC NSAIDS for 8-10 hours post injection. Assessment & Plan Assessment & Plan (1) Sprain of right shoulder girdle: Code(s): S43.91XA - Sprain of unspecified parts of right shoulder girdle, initial encounter Qualifiers: Encounter type: initial encounter Qualified Code(s): S43.91XA - Sprain of unspecified parts of right shoulder girdle, initial encounter Plan: X-ray images were reviewed by me. Patient was given an arm sling and meloxicam. Orders: Orders XR shoulder RT min 2V 11/17/22 S43.401A - Unspecified sprain of right shoulder joint, initial encounter AMB Ketorolac Injection 11/17/22 S43.91XA - Sprain of unspecified parts of right shoulder girdle, initial encounter Referrals Orthopedics Referral S43.91XA - Sprain of unspecified parts of right shoulder girdle, initial encounter Coding Level of Care Code Est Pt Level 4 (00114) Diagnoses Sprain of right shoulder girdle, initial encounter S43.91XA Encounter type: initial encounter
[2022-11-17 10:31] VITALS: BP 110/78; PULSE 70; O2SAT 97
== END 2022-11-17 15:47 | disposition home or self-care (01) ==
PROVIDERS: PCP Internal Medicine; Visit Provider Internal Medicine
DX: S43.91XA Sprain of unspecified parts of right shoulder girdle, initial encounter (principal)
CPT/HCPCS: 96372; 99214; J1885

== ENCOUNTER 2022-11-17 11:13 | Outpatient (REF) | payer MEDICARE, OTHER, SELFPAY ==
--- NOTE | ~2022-11-17 | XR_ITS ---
EXAMINATION: XR SHOULDER, RIGHT CLINICAL INFORMATION: Sprain of right shoulder COMPARISON: None available. TECHNIQUE: AP external rotation, Grashey, scapular Y views of the right shoulder. FINDINGS: The right shoulder is located. No acute fracture or subluxation is evident. There are calcifications adjacent to the greater tuberosity, most likely calcific tendinosis. Mild degenerative changes of the glenohumeral joint are noted. There is a sclerotic lesion in the proximal third of the right humeral shaft, incompletely imaged. XR/XR shoulder RT min 2V IMPRESSION: 1. No acute fracture or subluxation. 2. Calcific tendinosis of the supraspinatus. 3. Sclerotic lesion in the right humeral shaft, incompletely imaged, but uncertain significance. Correlation with medical history is advised, as osteoblastic metastatic disease is not excluded.
== END 2022-11-17 11:14 | disposition home or self-care (01) ==
LOC: HO.HMGCX 11:13
PROVIDERS: PCP Internal Medicine; Visit Provider Internal Medicine
DX: S43.401A Unspecified sprain of right shoulder joint, initial encounter (principal); X58.XXXA Exposure to other specified factors, initial encounter; Y93.9 Activity, unspecified; Y92.9 Unspecified place or not applicable; Y99.9 Unspecified external cause status
CPT/HCPCS: 73030

== ENCOUNTER 2022-11-25 13:38 | Outpatient (AMB) | payer MEDICARE, OTHER, SELFPAY ==
--- NOTE | 2022-11-25 13:50 | MHC.OFFVIS ---
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 Pt states this started about 3 weeks ago without any inury to her shoulder. Pt states she went to the walk in clinic 0n 11/17/22 and the Xray showed arthritis in her right shoulder. Pt states she is having trouble lifting her arm above her head. Pt states she has tried ibuprofen, ice, and heat with minimal relief. Accompanied by: Spouse Allergies No Known Allergies Allergy (Mild, Verified 11/25/22 13:50) NONE Medication List - Last Reconciled 11/25/22 by Nicholas Cooepr MD ascorbic acid (vitamin C) (Vitamin C) 1,000 mg PO DAILY beta carotene 25,000 mcg PO DAILY calcium carbonate (Calcium) 600 mg PO DAILY cholecalciferol (vitamin D3) (Vitamin D3) 50 mcg PO DAILY citalopram 10 mg PO QAM fish,bora,flax oils-om3,6,9no1 1,200 mg ([place] 3-6-9) 1 cap PO DAILY garlic 1,000 mg PO DAILY lisinopril 5 mg PO QAM lorazepam 0.5 mg PO BEDTIME lycopene 40 mg PO DAILY pumpkin seed extract 1,000 mg PO DAILY resveratrol 250 mg PO DAILY selenium 200 mcg PO DAILY trazodone 50 mg PO BEDTIME turmeric root extract 1,000 mg PO DAILY ubiquinol-pyrroloquin quinone 100-10 mg 1 cap PO DAILY vitamin B complex 1 tab PO DAILY vitamin E 268 mg PO DAILY zinc 50 mg PO DAILY PFSH Medical History History of COVID-19 Arthritis Decreased hearing HTN (hypertension) Low back pain Lumbar stenosis Generalized anxiety disorder Surgical History Hx of tonsillectomy Hx of bilateral cataract extraction H/O colonoscopy History of hysterectomy Family History Mother No problems noted. Father No problems noted. Social History Housing: House Are you a primary medicare contact specialist to a significant other at home: No Do you presently have visiting nurse or other home services: No Alcohol intake: current Alcohol intake frequency: holidays/special occasions only Patient Tobacco Use Status: Former Tobacco user Quit Date: age 47 Tobacco use type: Cigarette Years Smoked: 15 e-Cigarette/Vaping Use: Never Used Second Hand Smoke Exposure: No service: No Current occupational status: retired Cognitive needs: No Hearing needs: Yes (Hearing aide) Vision needs: No Physical Exam Const Other: Well-nourished well-developed very friendly female awake alert and oriented x3 in no acute distress Extrem Other: Bilateral upper extremity examination shows good capillary refill, no skin lesions noted, normal sensation light touch Right shoulder examination shows slightly decreased range of motion when compared to her left shoulder, 5/5 strength with supraspinatus testing, positive impingement signs, mild tenderness over her acromioclavicular joint Results Reviewed Results Reviewed: X-rays of the patient's right shoulder show moderate to severe acromioclavicular joint narrowing, type 2 acromion, a calcium deposit within the supraspinatus tendon Assessment & Plan Assessment & Plan (1) Right shoulder pain: Code(s): M25.511 - Pain in right shoulder Plan: Ms. Montemayor presents with right shoulder pain due to impingement syndrome as well as adhesive capsulitis. I had a lengthy discussion with the patient regarding the treatment options. At this point the patient's symptoms are improving on her own. She will continue with her home stretching program to prevent stiffness. I discussed with the patient the fact that the calcium deposit will most likely reabsorb over time. We will hold off on a cortisone injection at this time. She will follow up with me on an as-needed basis should her symptoms worsen in any way. Feel free to call me at any time should questions regarding her orthopedic management arise. Thank you very much for asking me to see this very friendly patient. I spent 22 minutes in reviewing the patient's records and imaging studies, seeing the patient and documenting in the medical record. Coding Level of Care Code New Pt Level 2 (92345) Diagnoses Right shoulder pain M25.511
== END 2022-11-25 14:33 | disposition home or self-care (01) ==
PROVIDERS: PCP Internal Medicine; Visit Provider Orthopaedic Surgery
DX: M25.511 Pain in right shoulder (principal)
CPT/HCPCS: 99202

== ENCOUNTER → 2022-11-25 13:38 | Outpatient (BNVA) | payer MEDICARE, OTHER, SELFPAY | PROVIDERS: PCP Internal Medicine; Visit Provider Orthopaedic Surgery | DX: M25.511 Pain in right shoulder (principal) | CPT/HCPCS: 99202 ==

== ENCOUNTER 2022-11-26 13:16 | Outpatient (AMB) | payer MEDICARE, OTHER, SELFPAY ==
--- NOTE | 2022-11-26 13:23 | MHC.PC.OV ---
Vital Signs 11/26/22 13:24 Height 5 ft 3 in Weight 119 lb BMI 21.1 BP 120/70 Blood Pressure Location Lt brachial Position Sitting Pulse 67 Pulse Source Pulse Oximeter Pulse Oximetry (%) 96 Oxygen Delivery Method Room Air Intake Visit Reasons: Foraminotomy Surgery 12/09/22 Intake Note: Patient is here for a Pre-op for Foraminotomy scheduled with Dr River on 12/09/22. Client Support Administrator Required: No Assistant Secretary: Present Accompanied by: Spouse Allergies No Known Allergies Allergy (Mild, Verified 11/26/22 13:23) NONE Tobacco use date assessed: 11/26/22 Fall risk assessment: No Falls in past year Last assessed Fall Risk: 11/26/22 Dental Screening Dental Screen Date: 11/26/22 Did you have a dental visit in the last 12 months?: Yes Did you have a dental problem in the last 6 months where you did not have access to dental care?: No Was dental information given to patient?: Patient has dentist HPI HPI Comments History of Present Illness Details 82-year-old female past medical history significant for generalized anxiety disorder, hypertension, low back pain and right shoulder pain. Patient of Dr. Oropeza presents today fro pre-op appointment Foraminotomy Surgery on 12/09/[address] Rodrigues. Patient denies any chest pain, palpitations, shortness of breath and syncope. Patient had CBC and CMP which were unremarkable TSH and PT/INR ordered pre-operatively. Pre-op EKG: Sinus bradycardia Minimal voltage criteria for LVH, may be normal variant ( Sokolow-Davis ) Borderline ECG When compared with ECG of 22-FEB-2021 00:11, Vent. rate has decreased BY 33 BPM QT has shortened PFSH Medical History History of COVID-19 Arthritis Decreased hearing HTN (hypertension) Low back pain Lumbar stenosis Generalized anxiety disorder Surgical History Hx of tonsillectomy Hx of bilateral cataract extraction H/O colonoscopy History of hysterectomy Family History Mother No problems noted. Father No problems noted. Social History (Reviewed 11/26/22 @ 13:23 by SULLY Cook Housing: House Are you a primary critical care unit nurse to a significant other at home: No Do you presently have visiting nurse or other home services: No Alcohol intake: current Alcohol intake frequency: holidays/special occasions only Patient Tobacco Use Status: Former Tobacco user Quit Date: age 47 Tobacco use type: Cigarette Years Smoked: 15 e-Cigarette/Vaping Use: Never Used Second Hand Smoke Exposure: No service: No Current occupational status: retired Cognitive needs: No Hearing needs: Yes (Hearing aide) Vision needs: No Questionnaire Thrive Questionnaire Date Thrive assessed: 07/29/22 ALEX-7 AMB Questionnaire ALEX-7 Date ALEX - 7 assessed: 07/29/22 Source: Developed by Drs. Bill Alvarez, Xochitl Hammer, Enrrique Keenan and colleagues, with an educational ab from [employer]. Review of Systems Const Denies chills, Denies fatigue, Denies fever(s) and Denies poor appetite Eyes Denies no additional complaints ENT Reports Normal hearing present Card Denies chest pain, Denies syncope, Denies rapid heart rate and Denies dyspnea Resp Denies cough and Denies dyspnea GI Denies change in stool character, Denies constipation, Denies diarrhea, Denies nausea and Denies vomiting Denies urinary frequency, Denies dysuria and Denies urinary urgency Neuro Reports Normal hearing present, Denies confusion and Denies syncope Psych Denies confusion Endo Denies fatigue Physical exam (Primary Care) Vital Signs: Last Vital Signs Pulse 67 11/26/22 13:24 BP 120/70 11/26/22 13:24 Pulse Ox 96 11/26/22 13:24 Oxygen Delivery Method Room Air 11/26/22 13:24 BMI result Body Mass Index 21.1 Tobacco/Smoking Status: Tobacco use Status Tobacco use date assessed 11/26/22 11/26/22 13:29 Patient Tobacco Use Status Former Tobacco user 11/26/22 13:29 Tobacco use type Cigarette 11/26/22 13:29 e-Cigarette/Vaping Use Never Used 11/26/22 13:29 Thrive Assessment: Date of Thrive Assessment Date Thrive assessed 07/29/22 11/26/22 13:29 Const General: No confusion Orientation/consciousness: No confusion HENMT Head: Yes normocephalic and Yes atraumatic Eyes Conjunctivae: conjunctivae normal Chest Chest palpation & inspection: normal inspection of the chest Resp Effort & Inspection: normal respiratory effort Auscultation: clear to auscultation bilaterally, no crackles, no rhonchi and no wheezes Cardio Rate: regular rate Rhythm: regular rhythm Heart sounds: S1 normal heart sound present and S2 normal heart sound present GI Inspection: Yes normal to inspection Neuro General: No confusion Cranial nerves: Yes Normal hearing present Extrem General: No edema Assessment and Plan Assessment & Plan (1) Essential hypertension: Code(s): I10 - Essential (primary) hypertension Plan: Continue on lisinopril 5 mg daily. (2) Preop examination: Code(s): Z01.818 - Encounter for other preprocedural examination Plan: Patient advised to avoid any blood thinning medication 1 week prior to procedure i.e. NSAIDs and asa. TSH, PT/INR. Once reviewed, addendum will be made to this note patient able proceed with scheduled procedure. Orders: Orders TSH reflex Free T4 Today Z01.812 - Encounter for preprocedural laboratory examination Prothrombin Time INR Today Z01.812 - Encounter for preprocedural laboratory examination Coding Level of Care Code Est Pt Level 3 (36653) Diagnoses Essential hypertension I10 Preop examination Z01.818
[2022-11-26 13:24] VITALS: BP 120/70; PULSE 67; O2SAT 96; BMI 21.1
== END 2022-11-26 13:56 | disposition home or self-care (01) ==
PROVIDERS: PCP Internal Medicine; Visit Provider Nurse Practitioner Family
DX: I10 Essential (primary) hypertension (principal); Z01.818 Encounter for other preprocedural examination
CPT/HCPCS: 99213

== ENCOUNTER 2022-11-26 14:03 | Outpatient (REF) | payer MEDICARE, OTHER, SELFPAY ==
[2022-11-26 14:35] LABS: Prothrombin Time 11.9 SEC (11.1-13.3)
[2022-11-26 15:05] LABS: TSH reflex Free T4 0.67 uIU/mL (0.32-4.0)
== END 2022-11-26 14:04 | disposition home or self-care (01) ==
LOC: HO.LAB 14:03
PROVIDERS: PCP Internal Medicine; Visit Provider Nurse Practitioner Family
DX: Z01.812 Encounter for preprocedural laboratory examination (principal); F41.1 Generalized anxiety disorder
CPT/HCPCS: 36415; 84443; 85610

== ENCOUNTER 2022-12-09 06:02 | Day surgery (SDC) | payer MEDICARE, OTHER, SELFPAY ==
--- NOTE | 2022-11-25 | ECG_ITS ---
Test Reason : preop Blood Pressure : / mmHG Vent. Rate : 058 BPM Atrial Rate : 058 BPM P-R Int : 190 ms QRS Dur : 094 ms QT Int : 402 ms P-R-T Axes : 068 049 069 degrees QTc Int : 394 ms Sinus bradycardia Minimal voltage criteria for LVH, may be normal variant ( Sokolow-Davis ) Borderline ECG When compared with ECG of 22-FEB-2021 00:11, Vent. rate has decreased BY 33 BPM QT has shortened Referred By: Aydee Mukherjee Electronically Signed By:CARLITOS LOPEZ
[2022-11-25 12:11] VITALS: BP 123/63; PULSE 66; RESP 18; O2SAT 97; BMI 21.3
--- NOTE | 2022-11-25 12:38 | P.CONAN_ITS ---
Documented by User: Aydee Mukherjee NP 11/29/22 13:17 HPI - Anesthesia Eval Consult details Narrative: 82yo F for L4-5 Lumbar Decompression PCP clearance pending labs (PT/INR and TSH WNL) No recent illness No CP/SOB with minimal activity r/t pain PMFSH Active Problems Active Problems: All Active Problems (Updated 11/25/22 @ 12:01 by Hui Peter RN) Sprain of right shoulder girdle (Acute) Lumbar stenosis with neurogenic claudication (Acute) Lower thoracic back pain (Acute) Low back pain (Acute) Essential hypertension (Acute) COVID-19 (Acute) Decreased hearing (Acute) Annual physical exam (Acute) Generalized anxiety disorder (Acute) Past Medical History Medical History History of COVID-19 Arthritis Decreased hearing HTN (hypertension) Low back pain Lumbar stenosis Generalized anxiety disorder Family History Family History Mother No problems noted. Father No problems noted. Family history of problems with anesthesia: No Surgical History Surgical History Hx of tonsillectomy Hx of bilateral cataract extraction H/O colonoscopy History of hysterectomy History of Problems with Anesthesia: No Social History Social History Housing: House Are you a primary child care cook to a significant other at home: No Do you presently have visiting nurse or other home services: No Alcohol intake: current Alcohol intake frequency: holidays/special occasions only Patient Tobacco Use Status: Former Tobacco user Quit Date: age 47 Tobacco use type: Cigarette Years Smoked: 15 e-Cigarette/Vaping Use: Never Used Second Hand Smoke Exposure: No Use of substances other than those prescribed or required for medical reasons: No Have you been hit, kicked, punched, or otherwise hurt by someone within the past year? If so, by whom?: No Are you DNR?: No Advance Directives: No ( and daughter are primary contacts) Advance Directives Information Provided: Yes (brochure given) Advance Directives on File: No Recently lost weight without trying: No Eating poorly because of decreased appetite: No Nutrition Risks: Surgical patient >75years Poor oral hygiene: No service: No Current occupational status: retired Cognitive needs: No Hearing needs: Yes (Hearing aide) Vision needs: No Meds Allergies Allergy/AdvReac Type Severity Reaction Status Date / Time No Known Allergies Allergy Mild NONE Verified 11/26/22 13:23 Home Medications Medication Instructions Recorded Confirmed Last Taken Type ascorbic acid (vitamin C) 1,000 mg 1,000 mg PO DAILY 11/25/22 11/25/22 Unknown History tablet (Vitamin C) beta carotene 25,000 unit tablet 25,000 mcg PO DAILY 11/25/22 11/25/22 Unknown History calcium carbonate 600 mg calcium 600 mg PO DAILY 11/25/22 11/25/22 Unknown History (1,500 mg) tablet (Calcium) cholecalciferol (vitamin D3) 50 50 mcg PO DAILY 11/25/22 11/25/22 Unknown History mcg (2,000 unit) tablet (Vitamin D3) citalopram 10 mg tablet 10 mg PO QAM 11/25/22 11/25/22 12/09/22 History fish, borage, flaxseed oils-omega 1 cap PO DAILY 11/25/22 11/25/22 Unknown History 3,6,9 comb no.1 1,200 mg capsule ([place] 3-6-9) garlic 1,000 mg capsule 1,000 mg PO DAILY 11/25/22 11/25/22 Unknown History lycopene 10 mg capsule 40 mg PO DAILY 11/25/22 11/25/22 Unknown History pumpkin seed extract 500 mg capsule 1,000 mg PO DAILY 11/25/22 11/25/22 Unknown History resveratrol 250 mg capsule 250 mg PO DAILY 11/25/22 11/25/22 Unknown History selenium 200 mcg capsule 200 mcg PO DAILY 11/25/22 11/25/22 Unknown History turmeric root extract 500 mg 1,000 mg PO DAILY 11/25/22 11/25/22 Unknown History capsule ubiquinol 100 mg-pyrroloquinoline 1 cap PO DAILY 11/25/22 11/25/22 Unknown History quinone (coenzyme PQQ) 10 mg capsule vitamin B complex 1 tab PO DAILY 11/25/22 11/25/22 Unknown History vitamin E 268 mg (400 unit) capsule 268 mg PO DAILY 11/25/22 11/25/22 Unknown History zinc 50 mg tablet 50 mg PO DAILY 11/25/22 11/25/22 Unknown History Exam Exam Date and Time: November 25, 2022 1238 Height,Weight and Vital Signs: Height 5 ft 3 in Weight 54.431 kg Last Vital Signs Pulse 66 11/25/22 12:11 Resp 18 11/25/22 12:11 BP 123/63 11/25/22 12:11 Pulse Ox 97 11/25/22 12:11 O2 Del Method Room Air 11/25/22 12:11 Pertinent Lab Results Pertinent Lab Results: Lab Results 11/25/22 Range/Units 13:04 WBC 5.0 (4.8-10.8) X10*3/uL RBC 4.31 (4.20-5.50) X10*6/uL Hgb 13.8 (12.0-16.0) g/dl Hct 41.4 (37.0-47.0) % MCV 96.1 (80.0-98.0) fL MCH 32.0 (27.0-33.0) pg MCHC 33.3 (31.0-35.0) g/dl RDW 12.8 (11.0-16.0) % Plt Count 346 D (160-400) X10*3/uL MPV 8.9 L (9.4-12.3) fL Absolute Nucleated RBC 0.000 (0.0-0.012) X10*3/uL Nucleated RBC % (auto) 0.0 (0.0-0.2) /100WBC Sodium 140 (135-145) mmol/L Potassium 4.4 D (3.3-5.1) mmol/L Chloride 103 (96-108) mmol/L Carbon Dioxide 29 (22-29) mmol/L Anion Gap 12 (12-20) BUN 16 (9-16) mg/dL Creatinine 0.64 (0.5-1.4) mg/dL Estim Creat Clear Calc 58.0 Estimated GFR > 60 Random Glucose 93 (60-115) mg/dL Calcium 9.9 D (8.4-10.2) mg/dL Narrative Narrative: EKG 11/2022 Vent. Rate : 058 BPM Atrial Rate : 058 BPM P-R Int : 190 ms QRS Dur : 094 ms QT Int : 402 ms P-R-T Axes : 068 049 069 degrees QTc Int : 394 ms Sinus bradycardia Minimal voltage criteria for LVH, may be normal variant ( Sokolow-Davis ) Borderline ECG When compared with ECG of 22-FEB-2021 00:11, Vent. rate has decreased BY 33 BPM QT has shortened Airway Loose/Missing/Broken Teeth: No (crowned molars) Heart: RRR Lungs: CTAB Assessment and Plan Assessment Anesthesia Assessment: Anesthesia Plan Discussed and PAT Visit Final Anesthetic Review Family History of Problems with Anesthesia: No History of Problems with Anesthesia: No Documented by User: Lexi Dickerson MD 12/09/22 07:58 [facility] Past Medical History Medical History History of COVID-19 Arthritis Decreased hearing HTN (hypertension) Low back pain Lumbar stenosis Generalized anxiety disorder Family History Family History Mother No problems noted. Father No problems noted. Surgical History Surgical History Hx of tonsillectomy Hx of bilateral cataract extraction H/O colonoscopy History of hysterectomy Social History Social History Housing: House Are you a primary child care cook to a significant other at home: No Do you presently have visiting nurse or other home services: No Alcohol intake: current Alcohol intake frequency: holidays/special occasions only Patient Tobacco Use Status: Former Tobacco user Quit Date: age 47 Tobacco use type: Cigarette Years Smoked: 15 e-Cigarette/Vaping Use: Never Used Second Hand Smoke Exposure: No Use of substances other than those prescribed or required for medical reasons: No Have you been hit, kicked, punched, or otherwise hurt by someone within the past year? If so, by whom?: No Are you DNR?: No Advance Directives: No ( and daughter are primary contacts) Advance Directives Information Provided: Yes (brochure given) Advance Directives on File: No Recently lost weight without trying: No Eating poorly because of decreased appetite: No Nutrition Risks: Surgical patient >75years Poor oral hygiene: No service: No Current occupational status: retired Cognitive needs: No Hearing needs: Yes (Hearing aide) Vision needs: No Meds Allergies Allergy/AdvReac Type Severity Reaction Status Date / Time No Known Allergies Allergy Mild NONE Verified 11/26/22 13:23 Home Medications Medication Instructions Recorded Confirmed Last Taken Type ascorbic acid (vitamin C) 1,000 mg 1,000 mg PO DAILY 11/25/22 11/25/22 Unknown History tablet (Vitamin C) beta carotene 25,000 unit tablet 25,000 mcg PO DAILY 11/25/22 11/25/22 Unknown History calcium carbonate 600 mg calcium 600 mg PO DAILY 11/25/22 11/25/22 Unknown His tory (1,500 mg) tablet (Calcium) cholecalciferol (vitamin D3) 50 50 mcg PO DAILY 11/25/22 11/25/22 Unknown History mcg (2,000 unit) tablet (Vitamin D3) citalopram 10 mg tablet 10 mg PO QAM 11/25/22 11/25/22 12/09/22 History fish, borage, flaxseed oils-omega 1 cap PO DAILY 11/25/22 11/25/22 Unknown History 3,6,9 comb no.1 1,200 mg capsule ([place] 3-6-9) garlic 1,000 mg capsule 1,000 mg PO DAILY 11/25/22 11/25/22 Unknown History lycopene 10 mg capsule 40 mg PO DAILY 11/25/22 11/25/22 Unknown History pumpkin seed extract 500 mg capsule 1,000 mg PO DAILY 11/25/22 11/25/22 Unknown History resveratrol 250 mg capsule 250 mg PO DAILY 11/25/22 11/25/22 Unknown History selenium 200 mcg capsule 200 mcg PO DAILY 11/25/22 11/25/22 Unknown History turmeric root extract 500 mg 1,000 mg PO DAILY 11/25/22 11/25/22 Unknown History capsule ubiquinol 100 mg-pyrroloquinoline 1 cap PO DAILY 11/25/22 11/25/22 Unknown History quinone (coenzyme PQQ) 10 mg capsule vitamin B complex 1 tab PO DAILY 11/25/22 11/25/22 Unknown History vitamin E 268 mg (400 unit) capsule 268 mg PO DAILY 11/25/22 11/25/22 Unknown History zinc 50 mg tablet 50 mg PO DAILY 11/25/22 11/25/22 Unknown History Assessment and Plan Assessment Anesthesia Assessment: Chart Reviewed Final Anesthetic Review NPO: Yes ASA Class: II Final Preanesthetic Review: No Changes in Pt Med Stat, Meds/Allgs Chart Reviewed, Consent Obtained/Reviewed and Anes Risks/Benef Reviewed Patient Risk: Low Procedure Risk: Intermediate Anesthetic Plan Anesthetic Plan: GA Disposition: Standard PACU
[2022-11-25 13:17] LABS: Hematocrit 41.4 % (37.0-47.0); Hemoglobin 13.8 g/dl (12.0-16.0); Mean Corpuscular HGB Conc 33.3 g/dl (31.0-35.0); Mean Corpuscular Volume 96.1 fL (80.0-98.0); Mean Platelet Volume 8.9 fL (9.4-12.3); Platelet Count 346 X10*3/uL (160-400); Red Blood Count 4.31 X10*6/uL (4.20-5.50); Red Cell Distribution Width 12.8 % (11.0-16.0)
[2022-11-25 14:16] LABS: Anion Gap 12 (12-20); Blood Urea Nitrogen 16 mg/dL (9-16); Calcium 9.9 mg/dL (8.4-10.2); Carbon Dioxide 29 mmol/L (22-29); Chloride 103 mmol/L (96-108); Estimated Glomerular Filt Rate > 60; Glucose Random 93 mg/dL (60-115); Potassium 4.4 mmol/L (3.3-5.1); Sodium 140 mmol/L (135-145)
[2022-12-09] VITALS (13 sets, daily range): BP systolic 141–191; BP diastolic 71–98; PULSE 61–96; RESP 10–16; TEMP 36.3–36.7; O2SAT 98–100
--- NOTE | 2022-12-09 06:59 | MHC.SHP ---
Pre-Procedural Eval Section A Date of Service: 12/09/22 Section B Chief Complaint: Spinal stenosis, lumbar region with neurogenic cla Allergies: Allergies Allergy/AdvReac Type Severity Reaction Status Date / Time No Known Allergies Allergy Mild NONE Verified 11/26/22 13:23 Review of Systems Sugical H&P ROS: Negative: Constitution, Cardiovascular, Respiratory, Neurological, Psychiatric, Hem-Onc, Allergic/Immunologic, Gastrointestinal, Genitourinary, Musculoskeletal, Integumentary, Endocrine and Eyes/Ears/Nose/Throat Exam Surgical H&P Exam: Not Evaluated: HEENT, Not Evaluated: Heart, Not Evaluated: Lungs, Not Evaluated: Extremities, Not Evaluated: Abdomen, Not Evaluated: Skin and Not Evaluated: Neurological Plan Diagnosis/Plan: Unchanged I have reviewed the history and physical and performed a pertinent physical examination on my patient. No changes have occurred unless specified. Plan remains the same, L4-5 left foraminotomy Time Spent With Patient Time: Total time managing care of this patient today __10__ minutes.
--- NOTE | 2022-12-09 08:38 | P.DS_ITS ---
DS: Providers Provider Date of Service: 12/09/22 Date of discharge: 12/09/22 Primary care physician: Jose Alejandro Oropeza MD Admitting clinician: Armen Rodrigues DS: Diagnosis Discharge Diagnosis (1) Lumbar stenosis with neurogenic claudication: Status: Acute DS: Summary Time Spent with Patient Time attestation: Total time managing care of this patient today ____ minutes. Discharge coordination time: Less than 30 minutes Quality: Safe Use of Opioids Does Pt have an Active Cancer Diagnosis on the Problem List?: No Quality: Stroke Does the patient have a stroke diagnosis?: No Physical Exam Vital Signs: Vital Signs: Last Vital Signs Temp 98.0 F 12/09/22 06:26 Pulse 61 12/09/22 06:26 Resp 16 12/09/22 06:26 BP 141/71 H 12/09/22 06:26 Pulse Ox 98 12/09/22 06:26 O2 Del Method Room Air 12/09/22 06:26 BMI result Body Mass Index 21.3 DS: Data Data Completed and Pending Labs on day of discharge: Laboratory Results - last 24 hr 12/09/22 06:42 Blood Type O Positive Antibody Screen NEGATIVE Discharge Plan Discharge Patient Disposition: Home, Self-Care Referrals: Jose Alejandro Oropeza MD [Primary Care Provider] - 1 Week Discharge Medications: New oxycodone 5 mg tablet 5 mg PO Q4H PRN (Reason: pain) Qty: 20 0RF Rx Instructions: Partial Fill upon patient request. Continued lorazepam 0.5 mg tablet 0.5 mg PO BEDTIME Qty: 30 0RF trazodone 50 mg tablet 50 mg PO BEDTIME Qty: 90 1RF lisinopril 5 mg tablet 5 mg PO QAM Qty: 90 1RF citalopram 10 mg tablet 10 mg PO QAM ascorbic acid (vitamin C) [Vitamin C] 1,000 mg Tablet 1,000 mg PO DAILY garlic 1,000 mg Capsule 1,000 mg PO DAILY calcium carbonate [Calcium 600] 600 mg calcium (1,500 mg) Tablet 600 mg PO DAILY vitamin B complex Tablet 1 tab PO DAILY zinc 50 mg Tablet 50 mg PO DAILY vitamin E 268 mg (400 unit) Capsule 268 mg PO DAILY beta carotene 25,000 unit Tablet 25,000 mcg PO DAILY Rx Instructions: administer with a meal lycopene 10 mg Capsule 40 mg PO DAILY Rx Instructions: administer after a meal cholecalciferol (vitamin D3) [Vitamin D3] 50 mcg (2,000 unit) Tablet 50 mcg PO DAILY resveratrol 250 mg Capsule 250 mg PO DAILY turmeric root extract 500 mg Capsule 1,000 mg PO DAILY selenium 200 mcg Capsule 200 mcg PO DAILY [place] 3-6-9 1,200 mg Capsule 1 cap PO DAILY pumpkin seed extract 500 mg Capsule 1,000 mg PO DAILY ubiquinol-pyrroloquin quinone 100-10 mg Capsule 1 cap PO DAILY Discharge Orders: Discharge Order (Routine); Ordered 12/09/22 Ordered By: Eloy Casillas Diet: Advance to usual diet Activity on Discharge: As tolerated Activity Restrictions/Additional Instructions: After your spinal surgery we ask you to observe the following restrictions/guidelines: Activity: It is normal to feel some discomfort as you increase your activity, but that will improve with time. We ask you avoid heavy lifting or acitivities that cause pain. As a general rule, 8lbs is a safe limit for lifting right after surgery. Walk as much as you feel comfortable but not to exhaustion. You will feel extra tired the first few days after surgery. Stay well hydrated. It is OK to walk up and down stairs You may return to driving when you are off narcotics (such as vicodin, oxycodone, dilaudid, etc), and you are back to normal functional capacity. If you have any concerns please check with office before driving. Return to work is specific to each patient and each surgery, so please speak with your doctor/PA at first follow up. Please bring paperwork such as FMLA at that time if you need it filled out. Medications: For optimum pain control, it is best to start with a combination of 500 mg of Tylenol every 4 hours with 600 mg of Motrin every 8 hours, and use narcotics as needed in between for breakthrough pain. We will give you a short supply of narcotics after surgery (usually one weeks worth). If you need more please call the office but do not use more than prescribed. You will need to give our office 48 hours notice if you need narcotics refilled and we do not fill narcotics on weekends or evenings. If you are on a narcotic, it is a good idea to take a stool softener such as colace or senna to avoid constipation If you take blood thinner such as aspirin, Plavix, Coumadin, Effient, Eliquis etc for conditions such as Afib, DVT, Pulmonary embolus, coronary disease, stents etc please speak with your surgeon about specific details as to when you can resume these medications. You can resume NSAIDs on post op day 1 (eg: Motrin, Naproxen, etc). Follow up: Please call the office, , after surgery to arrange a 3 week follow up for wound check. Wound Care: You may remove your dressing on the first day after surgery. You may leave open to air. Please do not remove the steri strips underneath. they will fall off on their own in one week. IT IS NORMAL FOR THE WOUND TO OOZE OR BE BLOODY FOR A FEW DAYS AFTER SURGERY. IF THIS HAPPENS JUST PLACE NEW DRESSING OVER IT TO AVOID STAINING CLOTHES. You may shower on post op day # 1 We ask that you do not let the water soak the wound. If it does get wet, just towel dry lightly. Please do not scrub your incision or place any type of chemical/ointment on the wound. No tub baths, pools or jacuzzis for one month. If you have any leaking or redness from your wound, or fevers, please call office
--- NOTE | 2022-12-09 08:45 | W.PM.OPN ---
Operative Note Operative Note Date of Service: 12/09/22 Narrative: ?Preoperative?Diagnosis:??Left?L4-5?spinal?stenosis/lateral?recess?stenosis/neural?foraminal?stenosis Operation:??Left?L4-5?Laminotomy,?Partial?facetectomy?and?foraminotomy?with?use?of?microscope Consent Informed?Consent?was?obtained?for?this?operation.?I?have?explained?the?nature,?purpose?and?benefits?of?the?operation.?I?have?discussed?the?risks?and?benefit?of?the?operation?including?possible?complications?or?adverse?events?with?patient/family.?Alte rnative(s)?were?discussed?with?the?patient?with?their?relative?benefits?and?risks?as?well?as?the?consequences?of?not?accepting?the?operation?were?included?in?obtaining?consent. Surgeon:?JACQUES SON?A?MD,?PHD Procedure?Assisted?By:?Eloy?Vinny?Pac] Description?of?Procedure This?82-year old?female?is suffering?from?left?L5?radiculopathy?due?to?severe?lateral?recess?stenosis?compressing?the?left?L5?nerve?root.?The?patient?was?offered?a?decompression.?The?procedure?complications?were?explained.?The?patient?was?consented.?The?patient?was?brought?to? the?operating?room?and?endotracheally?intubated.?The?patient?was?turned?in?prone?position?on?the?Luigi?frame.?Prep?and?drape?was?done?followed?by?timeout.?The?Physician?trust administrative assistant?provided?access.?A?mid?lumbar?incision?was?made?followed?by?release?of ?the?paravertebral?muscle?bilaterally?to?expose?the?[]?lamina?and?facet?joints.?An?intraoperative?x-ray?was?obtained?to?confirm?the?correct?level.?The?microscope?was?brought?in.?I?took?over?the?procedure.??The?highspeed?drill?was?used?to?do?a?L4?and? L5?laminotomy?until?flavum?ligament?was?reached.??a?2.?Kerrison?was?used?to?expand?the?laminotomy?near?flush?to?the?pedicles?and?to?include?a?partial?facetectomy.??The?flavum?and?was?opened?and?resected?with?a?3.?Kerrison?to?decompress?the?underlying ?thecal?sac.??The?flavum?ligament?was?removed?to?decompress?the?lateral?recess?and?the?exiting?[]?nerve?roots?bilaterally.??A?long?nerve?hook?could?be?easily?passed?along?the?medial?side?of?the?pedicles?as?a?sign?of?adequate?decompression.?The?micros cope?was?removed.?Hemostasis?was?done.??The?physician?trust administrative assistant?close?the?Incision?in?2?layers.?Steri-Strips?were?used?to?approximate?incision.?An?OpSite?with?Tegaderm?was?used?to?cover?the?incision.?All?sponge?needle?counts?were?correct.?Patient?was ?extubated?and?transported?in?stable?is?to?recovery?room. Anesthesia:?General Estimated?Blood?Loss?(ml):?[] Complications:?None Duration?of?Surgery:?Under?60?Minutes Postoperative?Plan:?Discharge?to?home
--- NOTE | 2022-12-09 11:29 | W.PM.OPN ---
Operative Note Operative Note Date of Service: 12/09/22 Narrative: Preoperative Diagnosis: L4-5 spinal stenosis/lateral recess stenosis/neural foraminal stenosis Operation: Left L4-5 laminotomy, Partial facetectomy and foraminotomy with use of microscope Consent Informed Consent was obtained for this operation. I have explained the nature, purpose and benefits of the operation. I have discussed the risks and benefit of the operation including possible complications or adverse events with patient/family. Alternative(s) were discussed with the patient with their relative benefits and risks as well as the consequences of not accepting the operation were included in obtaining consent. Surgeon: JACQUES SON MD, PHD Procedure Assisted By: Eloy Casillas Pac] Description of Procedure This patient is suffering from left L5 lumbar radiculopathy due to severe L4-5 lateral recess stenosis. The patient was offered a decompression. The procedure complications were explained. The patient was consented. The patient was brought to the operating room and endotracheally intubated. The patient was turned in prone position on the Luigi frame. Prep and drape was done followed by timeout. The Physician food and beverage assistant manager provided access. A mid lumbar incision was made followed by release of the paravertebral muscle on the left to expose the left L4-5 laminae and facet joints. An intraoperative x-ray was obtained to confirm the correct level. The microscope was brought in. I took over the procedure. The high-speed drill was used to do a left L4-5 laminotomy until the flavum ligament was reached. A 2. Kerrison was used to expand the laminotomy near flush to the pedicles and to include a partial facetectomy. The flavum and was opened and resected with a 3. Kerrison to decompress the underlying thecal sac. The flavum ligament was removed to decompress the lateral recess and the exiting L5 nerve root. The nerve compression was caused by medial facet hypertrophy. A long nerve hook could be easily passed along the medial side of the pedicles as a sign of adequate decompression. The microscope was removed. Hemostasis was done. The physician food and beverage assistant manager close the Incision in 2 layers. Steri-Strips were used to approximate incision. An OpSite with Tegaderm was used to cover the incision. All sponge needle counts were correct. Patient was extubated and transported in stable is to recovery room. Anesthesia: General Estimated Blood Loss (ml): minimal Complications: None Duration of Surgery: Under 60 Minutes Postoperative Plan: Discharge to home
== END 2022-12-09 11:59 | disposition home or self-care (01) ==
PROVIDERS: Nurse Practitioner; PCP Internal Medicine; Visit Provider Neurological Surgery
PROC: (CPT 63047; principal; 2022-12-09 07:30)
DX: M48.062 Spinal stenosis, lumbar region with neurogenic claudication (principal); F41.1 Generalized anxiety disorder; I10 Essential (primary) hypertension; M54.50 Low back pain, unspecified; M25.511 Pain in right shoulder; Z79.899 Other long term (current) drug therapy; Z87.891 Personal history of nicotine dependence
CPT/HCPCS: 63047; 36415; 80048; 85027; 86850; 86900; 86901; 93005; J0131; J0690; J1100; J1170; J1885; J2405

== ENCOUNTER → 2022-12-09 06:02 | Outpatient (BNV) | payer MEDICARE, OTHER, SELFPAY | PROVIDERS: PCP Internal Medicine; Visit Provider Physician Assistant | DX: M48.062 Spinal stenosis, lumbar region with neurogenic claudication (principal) | CPT/HCPCS: 63047 ==

== ENCOUNTER 2022-12-21 10:55 | Outpatient (AMB) | payer MEDICARE, OTHER, SELFPAY ==
--- NOTE | 2022-12-21 11:24 | MHC.OFFWIV ---
Intake Vital Signs 12/21/22 11:25 Height 5 ft 3 in Weight 120 lb BMI 21.3 BP 110/62 Blood Pressure Location Lt brachial Position Sitting Pulse 63 Pulse Source Pulse Oximeter Temp 97.9 F Temp Source Temporal Artery Scan Pulse Oximetry (%) 98 Intake Visit Reasons: EP, Right hand swelling/soreness Intake Note: pt is here for c/o right arm swelling wherr IV port was for surgery 2 weeks ago Patient Tobacco Use Status: Former Tobacco user Quit Date: age 47 Allergies No Known Allergies Allergy (Mild, Verified 12/21/22 11:25) NONE Do you need a note to return to daycare/school/sports/work: Yes HPI HPI Comments History of Present Illness Details 82 y o F that present for arm pain and swelling. Pt reports traumatic IV insertion to her left forarm while presenting for surgery. Denies fever, chills PFSH Medical History History of COVID-19 Arthritis Decreased hearing HTN (hypertension) Low back pain Lumbar stenosis Generalized anxiety disorder Surgical History Hx of tonsillectomy Hx of bilateral cataract extraction H/O colonoscopy History of hysterectomy Family History Mother No problems noted. Father No problems noted. Social History Housing: House Are you a primary ocular care aide to a significant other at home: No Do you presently have visiting nurse or other home services: No Alcohol intake: current Alcohol intake frequency: holidays/special occasions only Patient Tobacco Use Status: Former Tobacco user Quit Date: age 47 Tobacco use type: Cigarette Years Smoked: 15 e-Cigarette/Vaping Use: Never Used Second Hand Smoke Exposure: No service: No Current occupational status: retired Cognitive needs: No Hearing needs: Yes (Hearing aide) Vision needs: No Review of Systems Musc Details: Arm pain and redness Physical Exam Vital Signs: Last Vital Signs Temp 97.9 F 12/21/22 11:25 Pulse 63 12/21/22 11:25 BP 110/62 12/21/22 11:25 Pulse Ox 98 12/21/22 11:25 BMI result Body Mass Index 21.3 Const General: healthy appearing, comfortable, no acute distress and alert Orientation/consciousness: patient oriented x3 Limitations: no limitations HEENT Head: Yes normal to inspection Ears: hearing grossly normal bilaterally Resp Effort & Inspection: normal respiratory effort and able to speak in complete sentences Cardio Rate: regular rate Skin General skin exam: no rashes or lesions noted Neuro General: patient oriented x3 Extrem Other: Mild eythema over large vein on the dorsal aspect of the forarm. No warmth or fluid collection General: Yes normal to inspection Assessment & Plan Assessment & Plan (1) Thrombophlebitis: Code(s): I80.9 - Phlebitis and thrombophlebitis of unspecified site Plan: Mild eythema over large vein on the dorsal aspect of the forarm. No warmth or fluid collection. Suspect throbophlebitis. Low suspcion or cellulitis at this time given no overlying warmth. Recommend Nsaids and warm compresses Discharge instructions, follow up and treatment are discussed with patient in my usual fashion. Alternatives in treatment are also discussed. The patient will return for worsening symptoms or as needed. Advised that any labs/imaging ordered will be followed up on and contact made if further treatment needed. Counseled that patient's condition may require further evaluation and/or treatment. Symptoms of concern for worsening disorder discussed in detail in my customary manner. Patient does verbalize understanding of the plan, there are no apparent barriers to communication. The patient is given the opportunity to ask questions and have them answered to his/her satisfaction Coding Level of Care Code Est Pt Level 3 (23869) Diagnoses Thrombophlebitis I80.9
[2022-12-21 11:25] VITALS: BP 110/62; PULSE 63; TEMP 36.6; O2SAT 98; BMI 21.3
== END 2022-12-21 11:59 | disposition home or self-care (01) ==
PROVIDERS: PCP Internal Medicine; Visit Provider Physician Assistant
DX: I80.9 Phlebitis and thrombophlebitis of unspecified site (principal)
CPT/HCPCS: 99213

== ENCOUNTER 2022-12-31 11:38 | Outpatient (AMB) | payer MEDICARE, OTHER, SELFPAY ==
--- NOTE | 2022-12-31 11:43 | HO.SPINEOV ---
Intake Intake Visit Reasons: 1st post Intake Note: Mrs. Montemayor is here today for her 1st post-op visit. 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 Her pain was instantly relieved when she was in the recovery room in she has been up moving around doing most activities. Her has had to hold back a little bit even. Her wound is healed up fine. We discussed activity guidelines, restrictions and expectations after lumbar decompression. She will call us down the road if something changes with the pain returns. Eloy Rodrigues MD, PhD [facility] Coding Level of Care Code Global (52177) Diagnoses Lumbar stenosis with neurogenic claudication M48.062
== END 2022-12-31 11:55 | disposition home or self-care (01) ==
PROVIDERS: PCP Internal Medicine; Visit Provider Physician Assistant
DX: M48.062 Spinal stenosis, lumbar region with neurogenic claudication (principal)
CPT/HCPCS: 99024

== ENCOUNTER → 2022-12-31 11:38 | Outpatient (BNVA) | payer MEDICARE, OTHER, SELFPAY | PROVIDERS: PCP Internal Medicine; Visit Provider Physician Assistant ==

== ENCOUNTER 2023-02-03 09:50 | Outpatient (AMB) | payer MEDICARE, OTHER, SELFPAY ==
[2023-02-03 09:56] VITALS: BP 116/60; PULSE 68; O2SAT 98; BMI 21.1
--- NOTE | 2023-02-03 09:56 | A.OFFPC_ITS ---
Vital Signs 02/03/23 09:56 Height 5 ft 3 in Weight 119 lb 2 oz BMI 21.1 BP 116/60 Blood Pressure Location Lt brachial Position Sitting Pulse 68 Pulse Source Pulse Oximeter Pulse Oximetry (%) 98 Oxygen Delivery Method Room Air Intake Visit Reasons: 6mth f/u Aging Box Hand Required: No Accompanied by: Spouse Allergies No Known Allergies Allergy (Mild, Verified 02/04/23 10:38) NONE Medication List - Last Reconciled 02/04/23 by Jose Alejandro Oropeza MD ascorbic acid (vitamin C) (Vitamin C) 1,000 mg PO DAILY beta carotene 25,000 mcg PO DAILY calcium carbonate (Calcium) 600 mg PO DAILY cholecalciferol (vitamin D3) (Vitamin D3) 50 mcg PO DAILY citalopram 10 mg PO QAM fish,bora,flax oils-om3,6,9no1 1,200 mg ([place] 3-6-9) 1 cap PO DAILY garlic 1,000 mg PO DAILY lisinopril 5 mg PO QAM lorazepam 0.5 mg PO BEDTIME lycopene 40 mg PO DAILY pumpkin seed extract 1,000 mg PO DAILY resveratrol 250 mg PO DAILY selenium 200 mcg PO DAILY trazodone 50 mg PO BEDTIME turmeric root extract 1,000 mg PO DAILY ubiquinol-pyrroloquin quinone 100-10 mg 1 cap PO DAILY vitamin B complex 1 tab PO DAILY vitamin E 268 mg PO DAILY zinc 50 mg PO DAILY Tobacco use date assessed: 11/26/22 Fall risk assessment: No Falls in past year Last assessed Fall Risk: 02/03/23 Dental Screening Dental Screen Date: 02/03/23 Did you have a dental visit in the last 12 months?: Yes Did you have a dental problem in the last 6 months where you did not have access to dental care?: No Was dental information given to patient?: Patient has dentist HPI 6mth f/u HPI Details 82-year-old female presents to the [facility] to discuss her chronic medical conditions. Patient is following up after her recent microdiskectomy. The procedure went very well and completely resolved her pain symptoms. Patient is able to walk and do all her activities of daily living. She is compliant with all her medications. [facility] Medical History History of COVID-19 Arthritis Decreased hearing HTN (hypertension) Low back pain Lumbar stenosis Generalized anxiety disorder Surgical History Hx of tonsillectomy Hx of bilateral cataract extraction H/O colonoscopy History of hysterectomy Family History Mother No problems noted. Father No problems noted. Social History Housing: House Are you a primary healthcare administrator to a significant other at home: No Do you presently have visiting nurse or other home services: No Alcohol intake: current Alcohol intake frequency: holidays/special occasions only Patient Tobacco Use Status: Former Tobacco user Quit Date: age 47 Tobacco use type: Cigarette Years Smoked: 15 e-Cigarette/Vaping Use: Never Used Second Hand Smoke Exposure: No service: No Current occupational status: retired Cognitive needs: No Hearing needs: Yes (Hearing aide) Vision needs: No Questionnaire Thrive Questionnaire Date Thrive assessed: 07/29/22 ALEX-7 AMB Questionnaire ALEX-7 Date ALEX - 7 assessed: 07/29/22 Source: Developed by Drs. Bill Alvarez, Xochitl Hammer, Enrrique Keenan and colleagues, with an educational ab from [employer]. Physical exam (Primary Care) Vital Signs: Last Vital Signs Pulse 68 02/03/23 09:56 BP 116/60 02/03/23 09:56 Pulse Ox 98 02/03/23 09:56 Oxygen Delivery Method Room Air 02/03/23 09:56 BMI result Body Mass Index 21.1 Tobacco/Smoking Status: Tobacco use Status Tobacco use date assessed 11/26/22 02/03/23 09:56 Patient Tobacco Use Status Former Tobacco user 02/03/23 09:56 Tobacco use type Cigarette 02/03/23 09:56 e-Cigarette/Vaping Use Never Used 02/03/23 09:56 Thrive Assessment: Date of Thrive Assessment Date Thrive assessed 07/29/22 02/03/23 09:56 Const General: cooperative and healthy appearing Nutritional Appearance: well nourished Orientation/consciousness: patient oriented x3 Limitations: no limitations HENMT Head: Yes normal to inspection Eyes General: appearance normal, both eyes and all related structures Neck Neck: Yes normal visual inspection Chest Chest palpation & inspection: normal palpation of entire chest wall Resp Effort & Inspection: normal respiratory effort Neuro General: patient oriented x3 Assessment and Plan Assessment & Plan (1) Low back pain: Code(s): M54.50 - Low back pain, unspecified Plan: Symptoms have resolved after the procedure. Discontinue the anti-inflammatories and muscle relaxants. Coding Level of Care Code Est Pt Level 3 (03375) Diagnoses Low back pain M54.50
== END 2023-02-03 10:39 | disposition home or self-care (01) ==
PROVIDERS: Visit Provider Internal Medicine
DX: M54.50 Low back pain, unspecified (principal)
CPT/HCPCS: 99213

== ENCOUNTER 2023-08-11 09:50 | Outpatient (AMB) | payer MEDICARE, OTHER, SELFPAY ==
--- NOTE | 2023-08-11 09:54 | MHC.PC.OV ---
Vital Signs 08/11/23 09:57 Height 5 ft 3 in Weight 119 lb 2 oz BMI 21.1 BP 110/64 Blood Pressure Location Lt brachial Position Sitting Pulse 94 Pulse Source Pulse Oximeter Pulse Oximetry (%) 96 Oxygen Delivery Method Room Air Intake Visit Reasons: 6mth f/u Intake Note: Patient is here to follow up on HTN, ALEX, Lower back pain. Requesting for hearing test referral to [facility]. Manager Recovery Required: No Toggle Press Folder And Feeder: Present Accompanied by: Spouse Allergies No Known Allergies Allergy (Mild, Verified 08/12/23 15:21) NONE Medication List - Last Reconciled 08/12/23 by Jose Alejandro Oropeza MD ascorbic acid (vitamin C) (Vitamin C) 1,000 mg PO DAILY beta carotene 25,000 mcg PO DAILY calcium carbonate (Calcium 600) 600 mg PO DAILY cholecalciferol (vitamin D3) (Vitamin D3) 50 mcg PO DAILY citalopram 10 mg PO QAM fish,bora,flax oils-om3,6,9no1 1,200 mg ([place] 3-6-9) 1 cap PO DAILY garlic 1,000 mg PO DAILY lisinopril 5 mg PO QAM lorazepam 0.5 mg PO BEDTIME lycopene 40 mg PO DAILY pumpkin seed extract 1,000 mg PO DAILY resveratrol 250 mg PO DAILY selenium 200 mcg PO DAILY trazodone 50 mg PO BEDTIME turmeric root extract 1,000 mg PO DAILY ubiquinol-pyrroloquin quinone 100-10 mg 1 cap PO DAILY vitamin B complex 1 tab PO DAILY vitamin E 268 mg PO DAILY zinc 50 mg PO DAILY Tobacco use date assessed: 08/11/23 Fall risk assessment: No Falls in past year Last assessed Fall Risk: 08/11/23 Dental Screening Dental Screen Date: 08/11/23 Did you have a dental visit in the last 12 months?: Yes Did you have a dental problem in the last 6 months where you did not have access to dental care?: No Was dental information given to patient?: Patient has dentist HPI 6mth f/u HPI Details 82-year-old female presents to the office to discuss her chronic medical conditions. Patient would like to get an audiology testing. She reports symptoms of decreased hearing in both ears. No ringing in the ears. Compliant with other medications. Patient does get abdominal pain on occasions and interestingly, it has been relieved with a dose of lorazepam. Appetite is normal. Able to function and do all activities of daily living. [facility] Medical History (Updated 08/12/23 @ 15:24 by Jose Alejandro Oropeza MD) Hearing loss History of COVID-19 Arthritis Decreased hearing HTN (hypertension) Low back pain Lumbar stenosis Generalized anxiety disorder Surgical History Hx of tonsillectomy Hx of bilateral cataract extraction H/O colonoscopy History of hysterectomy Family History Mother No problems noted. Father No problems noted. Social History Housing: House Are you a primary acute care physical therapist to a significant other at home: No Do you presently have visiting nurse or other home services: No Alcohol intake: current Alcohol intake frequency: holidays/special occasions only Patient Tobacco Use Status: Former Tobacco user Tobacco use type: Cigarette Years Smoked: 15 e-Cigarette/Vaping Use: Never Used Second Hand Smoke Exposure: No service: No Current occupational status: retired Cognitive needs: No Hearing needs: Yes (Hearing aide) Vision needs: No Questionnaire PHQ-9 Over the last 2 weeks, how often have you been bothered by any of the following problems? 1. Little interest or pleasure in doing things: not at all 2. Feeling down, depressed, or hopeless: not at all 3. Trouble falling or staying asleep, or sleeping too much: not at all 4. Feeling tired or having little energy: not at all 5. Poor appetite or overeating: not at all 6. Feeling bad about yourself - or that you are a failure or have let yourself or your family down: not at all 7. Trouble concentrating on things, such as reading the newspaper or watching television: not at all 8. Moving or speaking so slowly that other people could have noticed. Or the opposite - being so fidgety or restless that you have been moving around a lot more than usual: not at all 9. Thoughts that you would be better off or of hurting yourself in some way: not at all Total score: 0 Depression Screening Interpretation: Negative Depression Screening Done: Yes Source: Developed by Drs. Bill Alvarez, Xochitl Hammer, Enrrique Keenan and colleagues, with an educational ab from [employer]. Thrive Questionnaire Date Thrive assessed: 08/11/23 I am a: Patient What is your living situation today?: I have a steady place to live Within the past 12 months, did the food you bought not last and you didn't have the money to get more?: Never true Within the past 12 months, did you worry whether your food would run out before you got money to buy more?: Never true Do you have trouble paying for medicines?: No Do you have trouble getting transportation to medical appointments?: No Do you have trouble paying your heating and electricity bill?: No Do you have trouble taking care of your child, family member or friend?: No Do you have trouble with day-to-day activities such as bathing, preparing meals, shopping, managing finances, etc.?: No Are you currently unemployed and looking for a job?: No Are you interested in more education?: No Currently or been in a relationship where the following occur: no concerns reported THRIVE Score: 0 AUDIT C Alcohol Use Questionnaire (AUDIT-C) 1. How often do you have a drink containing alcohol?: Monthly or less 2. How many drinks containing alcohol do you have on a typical day when you are drinking?: 1 or 2 Total Score: 1 ALEX-7 AMB Questionnaire ALEX-7 Date ALEX - 7 assessed: 08/11/23 Feeling nervous, anxious, or on edge: 0 = Not at all Not being able to stop or control worryin = Not at all Worrying too much about different things: 0 = Not at all Trouble relaxin = Not at all Being so restless that it is hard to sit still: 0 = Not at all Becoming easily annoyed or irritable: 0 = Not at all Feeling afraid as if something awful might happen: 0 = Not at all Total ALEX-7 score (0-4 normal; 5-9 mild; 10-14 moderate; 15-21 severe): 0 Source: Developed by Drs. Bill Alvarez, Enrrique Andrade and colleagues, with an educational ab from [employer]. Physical exam (Primary Care) Vital Signs: Last Vital Signs Pulse 94 08/11/23 09:57 BP 110/64 08/11/23 09:57 Pulse Ox 96 08/11/23 09:57 Oxygen Delivery Method Room Air 08/11/23 09:57 Care Plan Goal for BP management: Blood pressure is in range. BMI result Body Mass Index 21.1 Tobacco/Smoking Status: Tobacco use Status Tobacco use date assessed 08/11/23 08/11/23 09:57 Patient Tobacco Use Status Former Tobacco user 08/11/23 09:55 Tobacco use type Cigarette 08/11/23 09:55 e-Cigarette/Vaping Use Never Used 08/11/23 09:55 PHQ-9: PHQ-9 Score PHQ-9: Total score 0 08/11/23 10:15 Depression Screening Interpretation: Negative Thrive Assessment: Date of Thrive Assessment Date Thrive assessed 08/11/23 08/11/23 09:57 Currently or been in a relationship where the following occur: no concerns reported Advance Care Planning discussion: Exists, not on file Date of discussion: 08/11/23 Forms completed: Health Care Proxy and MOLST Actual minutes spent: 5 Const General: cooperative and healthy appearing Nutritional Appearance: well nourished Orientation/consciousness: patient oriented x3 Limitations: no limitations HENMT Head: Yes normal to inspection Eyes General: appearance normal, both eyes and all related structures Neck Neck: Yes normal visual inspection Chest Chest palpation & inspection: normal palpation of entire chest wall Resp Effort & Inspection: normal respiratory effort Neuro General: patient oriented x3 Assessment and Plan Assessment & Plan (1) Hearing loss: Code(s): H91.90 - Unspecified hearing loss, unspecified ear Plan: Audiology testing has been requested. (2) Essential hypertension: Code(s): I10 - Essential (primary) hypertension Plan: Blood pressure is in range. Continue current medications. (3) Generalized anxiety disorder: Code(s): F41.1 - Generalized anxiety disorder Plan: Continue intermittent use of lorazepam. Orders: Referrals Audiology Referral H91.90 - Unspecified hearing loss, unspecified ear Medications: Refilled lisinopril 5 mg PO QAM 90 tabs 1RF I10 - Essential (primary) hypertension lorazepam 0.5 mg PO BEDTIME 30 tabs 0RF Coding Level of Care Code Est Pt Level 4 (91739) Diagnoses Hearing loss H91.90 Essential hypertension I10 Generalized anxiety disorder F41.1 Additional Codes Vital Signs *Quality* - Advance Care Planning discussion: Exists, not on file ([id number])
[2023-08-11 09:57] VITALS: BP 110/64; PULSE 94; O2SAT 96; BMI 21.1
== END 2023-08-11 11:00 | disposition home or self-care (01) ==
PROVIDERS: PCP Internal Medicine; Visit Provider Internal Medicine
DX: H91.90 Unspecified hearing loss, unspecified ear (principal); I10 Essential (primary) hypertension; F41.1 Generalized anxiety disorder; Z00.00 Encounter for general adult medical examination without abnormal findings
CPT/HCPCS: 1123F; 99214

== ENCOUNTER 2023-08-26 10:20 | Outpatient (REF) | payer MEDICARE, OTHER, SELFPAY | END 2023-08-26 10:21 | disposition home or self-care (01) | LOC: HO.SH 10:20 | PROVIDERS: PCP Internal Medicine; Visit Provider Internal Medicine | DX: Z01.118 Encounter for examination of ears and hearing with other abnormal findings (principal); H90.3 Sensorineural hearing loss, bilateral | CPT/HCPCS: 92552; 92556; 92557 ==

== ENCOUNTER 2023-11-21 14:12 | Outpatient (AMB) | payer MEDICARE, OTHER, SELFPAY ==
--- NOTE | 2023-11-21 14:34 | HO.SPINEOV ---
Intake Visit Reasons: mid back pain Intake Note: Mrs. Montemayor is here today c/o mid back pain. Automatic Screwmaker Required: No Allergies No Known Allergies Allergy (Mild, Verified 08/12/23 15:21) NONE Assessment & Plan Assessment & Plan (1) Back pain: Code(s): M54.9 - Dorsalgia, unspecified Category: Medical Plan Mrs Montemayor is returning to the office today to see us. She had a very successful lumbar decompression done at [facility] last year. She comes in today with complaints of left-sided midthoracic back pain. She feels it may have started about 10 days ago or so. She recently also developed some kind of illness for which she has had multiple constitutional symptoms including fatigue, lack of appetite, weight loss, excessive tiredness etc.. She does not recall having a fever. She may have had a runny nose. The back pain started just before all these symptoms. She has not develop any numbness tingling bowel or bladder incontinence going down the legs. On my exam her strength is full, she may be slightly hyperreflexic in the right leg. I told her we should start with a simple set of x-rays to exclude a compression fracture. These can be common in an 82-year-old woman and do not necessarily need to be associated with trauma. If this is nondiagnostic or the symptoms continue passed a few weeks I think we should escalated up to an MRI. I did tell her to get in contact with her PCP order be seen at an urgent care for these symptoms that she has been having for the last few weeks just to make sure she has not having some other issue. Many of her symptoms are constitutional in nature and at a minimum she should have some blood work done. She thought it might be a virus, but she never had a fever, cough, runny nose etc. and the symptoms do not seem to be going away. Total amount of time spent in this visit was 20 minutes in discussion of symptoms, thoracic x-ray order and subsequent plan of care Eloy Rodrigues MD,PhD [facility] Orders: Orders XR thoracic spine 2V Today M54.9 - Dorsalgia, unspecified Coding Level of Care Code Est Pt Level 3 (13138) Diagnoses Back pain M54.9
== END 2023-11-21 15:48 | disposition home or self-care (01) ==
PROVIDERS: PCP Internal Medicine; Visit Provider Physician Assistant
DX: M54.9 Dorsalgia, unspecified (principal)
CPT/HCPCS: 99213

== ENCOUNTER 2023-11-21 14:12 | Outpatient (REF) | payer MEDICARE, OTHER, SELFPAY ==
--- NOTE | ~2023-11-21 | XR_ITS ---
EXAMINATION: XR THORACIC SPINE CLINICAL INFORMATION: Back pain left mid back. COMPARISON: None available. TECHNIQUE: 3 views of the thoracic spine were obtained. FINDINGS: There is no fracture, malalignment, or suspicious lytic or blastic bone abnormality. There is an S-shaped thoracic scoliosis, convex to the left in the upper thoracic spine, apex at T3, and convex to the right in the lower spine, apex at T9. There are associated changes of degenerative disc and facet disease, moderate in severity. Imaged ribs demonstrate no abnormalities. Imaged lungs are clear but hyperlucent and hyperaerated. Swimmer's view demonstrates similar moderate spondylosis in the cervical region. Cervical thoracic junction is normal. No soft tissue abnormalities. XR/XR thoracic spine 2V IMPRESSION: 1. Radiographically, no acute findings in the thoracic spine. 2. S-shaped mild scoliosis with associated degenerative spondylosis. 3. COPD. Electronically signed by: Deng Campos MD 11/25/2023 03:31 PM EDT
--- NOTE | ~2023-11-21 | XR_ITS ---
EXAMINATION: XR CHEST CLINICAL INFORMATION: Cough, unspecified; pain in mid back. COMPARISON: 02/22/2021. CT angiogram PE protocol 02/22/2021. TECHNIQUE: 2 views of the chest were obtained. FINDINGS: Hyperaerated lung parenchyma with hyperlucent lungs particularly left lung. Flattened hemidiaphragms. Increased retrosternal clear space. Findings suggest underlying COPD. No airspace opacities. No pleural effusions. Mild biapical scarring. No pneumothorax. Calcified granuloma bilateral apices. The cardiac, hilar, and mediastinal contours are normal. There are degenerative changes with S-shaped mild scoliosis in the thoracic spine. No acute findings evident. XR/XR chest 2V IMPRESSION: 1. COPD without definite underlying acute lung disease. 2. Degenerative spinal changes with mild shaped scoliosis. No acute findings in the osseous structures. Electronically signed by: Deng Campos MD 11/25/2023 03:25 PM EDT
[2023-11-21 18:20] LABS: Hematocrit 42.6 % (37.0-47.0); Hemoglobin 14.6 g/dl (12.0-16.0); Mean Corpuscular HGB Conc 34.3 g/dl (31.0-35.0); Mean Corpuscular Hemoglobin 31.8 pg (27.0-33.0); Mean Corpuscular Volume 92.8 fL (80.0-98.0); Platelet Count 387 X10*3/uL (160-400); Red Blood Count 4.59 X10*6/uL (4.20-5.50); Red Cell Distribution Width 12.9 % (11.0-16.0); White Blood Count 6.3 X10*3/uL (4.8-10.8)
[2023-11-21 18:32] LABS: Appearance Urine Clear; Color Urine Dark Yellow; Glucose Urine UA Negative (Negative); Leukocyte Esterase Urine Negative (Negative); Nitrite Urine Negative (Negative); PH 6.5 (5.0-9.0); Urine Blood Negative (Negative); Urine Ketones Trace mg/dL (Negative); Urine Protein Negative (Neg-Trace)
[2023-11-21 19:23] LABS: Erythrocyte Sedimentation Rate 6 MM/HR (0-20)
== END 2023-11-21 14:13 | disposition home or self-care (01) ==
LOC: HO.HOSX 14:12
PROVIDERS: PCP Internal Medicine; Referring Provider Internal Medicine; Visit Provider Physician Assistant
DX: I10 Essential (primary) hypertension (principal); R05.9 Cough, unspecified; M54.9 Dorsalgia, unspecified
CPT/HCPCS: 36415; 71046; 72070; 81003; 85027; 85652; 99212

== ENCOUNTER 2023-11-21 15:06 | Outpatient (AMB) | payer MEDICARE, OTHER, SELFPAY ==
--- NOTE | 2023-11-21 15:13 | A.OFFPC_ITS ---
Vital Signs 11/21/23 15:15 Height 5 ft 3 in Weight 114 lb BMI 20.2 BP 120/70 Blood Pressure Location Lt brachial Position Sitting Pulse 71 Pulse Source Pulse Oximeter Pulse Oximetry (%) 98 Oxygen Delivery Method Room Air Intake Visit Reasons: loss appetite, extremely tired, sore low back Intake Note: Patient is here to follow up on Loss of appetite, extremely tired, sore lower back on going for 11 days. Pest Locator Required: No Partnership Development Manager: Present Accompanied by: Spouse Allergies No Known Allergies Allergy (Mild, Verified 11/21/23 15:14) NONE Tobacco use date assessed: 11/21/23 Fall risk assessment: No Falls in past year Last assessed Fall Risk: 11/21/23 Dental Screening Dental Screen Date: 08/11/23 HPI loss appetite, extremely tired, sore low back HPI Details 83-year-old female presents to [facility] for a sick visit. Patient is complaining of feeling tired, back pain, especially in the upper part on the left side. Does not recall any fall or injury. No cough or fever. She tested negative for COVID. [facility] Medical History (Updated 11/21/23 @ 14:57 by MYRA Lan) Hearing loss History of COVID-19 Arthritis Decreased hearing HTN (hypertension) Low back pain Lumbar stenosis Generalized anxiety disorder Surgical History Hx of tonsillectomy Hx of bilateral cataract extraction H/O colonoscopy History of hysterectomy Family History Mother No problems noted. Father No problems noted. Social History Housing: House Are you a primary health care specialist to a significant other at home: No Do you presently have visiting nurse or other home services: No Alcohol intake: current Alcohol intake frequency: holidays/special occasions only Patient Tobacco Use Status: Former Tobacco user Tobacco use type: Cigarette Years Smoked: 15 e-Cigarette/Vaping Use: Never Used Second Hand Smoke Exposure: No service: No Current occupational status: retired Cognitive needs: No Hearing needs: Yes (Hearing aide) Vision needs: No Questionnaire Thrive Questionnaire Date Thrive assessed: 08/11/23 ALEX-7 AMB Questionnaire ALEX-7 Date ALEX - 7 assessed: 08/11/23 Source: Developed by DrsShayy Alvarez, Xochitl Hammer, Enrrique Keenan and colleagues, with an educational ab from [employer]. Physical exam (Primary Care) Vital Signs: Last Vital Signs Pulse 71 11/21/23 15:15 BP 120/70 11/21/23 15:15 Pulse Ox 98 11/21/23 15:15 Oxygen Delivery Method Room Air 11/21/23 15:15 BMI result Body Mass Index 20.2 Tobacco/Smoking Status: Tobacco use Status Tobacco use date assessed 11/21/23 11/21/23 15:21 Patient Tobacco Use Status Former Tobacco user 11/21/23 15:21 Tobacco use type Cigarette 11/21/23 15:21 e-Cigarette/Vaping Use Never Used 11/21/23 15:21 Thrive Assessment: Date of Thrive Assessment Date Thrive assessed 08/11/23 11/21/23 15:21 Const General: cooperative and healthy appearing Nutritional Appearance: well nourished Orientation/consciousness: patient oriented x3 Limitations: no limitations HENMT Head: Yes normal to inspection Eyes General: appearance normal, both eyes and all related structures Neck Neck: Yes normal visual inspection Chest Chest palpation & inspection: normal palpation of entire chest wall Resp Effort & Inspection: normal respiratory effort Neuro General: patient oriented x3 Assessment and Plan Assessment & Plan (1) Back pain: Code(s): M54.9 - Dorsalgia, unspecified Plan: Blood work has been ordered. Chest x-ray has been ordered. Cyclobenzaprine has been called in. Will call with the results. Orders: Orders XR chest 2V Today R05.9 - Cough, unspecified Basic Metabolic Panel Today M54.9 - Dorsalgia, unspecified C Reactive Protein Today M54.9 - Dorsalgia, unspecified Erythrocyte Sedimentation Rate Today M54.9 - Dorsalgia, unspecified Complete Blood Count no Diff Today M54.9 - Dorsalgia, unspecified Liver Panel Today M54.9 - Dorsalgia, unspecified Coding Level of Care Code Est Pt Level 4 (95042) Complex EM visit Add On G2211 Diagnoses Back pain M54.9
[2023-11-21 15:15] VITALS: BP 120/70; PULSE 71; O2SAT 98; BMI 20.2
== END 2023-11-21 16:56 | disposition home or self-care (01) ==
LOC: HO.HMCH 15:06
PROVIDERS: PCP Internal Medicine; Visit Provider Internal Medicine
DX: M54.9 Dorsalgia, unspecified (principal)

== ENCOUNTER → 2023-11-21 17:00 | Outpatient (BNV) | payer MEDICARE, OTHER, SELFPAY | PROVIDERS: PCP Internal Medicine; Referring Provider Internal Medicine; Visit Provider Radiology Diagnostic Radiology | DX: J44.9 Chronic obstructive pulmonary disease, unspecified (principal); M41.84 Other forms of scoliosis, thoracic region | CPT/HCPCS: 71046; 72070 ==

== ENCOUNTER 2024-02-16 09:50 | Outpatient (AMB) | payer MEDICARE, OTHER, SELFPAY ==
--- NOTE | 2024-02-16 09:53 | MHC.PC.OV ---
Vital Signs 02/16/24 09:55 Height 5 ft 3 in Weight 117 lb BMI 20.7 BP 120/62 Blood Pressure Location Lt brachial Position Sitting Intake Visit Reasons: 6mth f/u Intake Note: Patient is here to follow up on HTN, Lower back pain. Supervisor Cold Rolling Required: No Architectural Model Maker: Present Accompanied by: Spouse Allergies No Known Allergies Allergy (Mild, Verified 02/16/24 13:28) NONE Medication List - Last Reconciled 02/16/24 by Jose Alejandro Oropeza MD ascorbic acid (vitamin C) (Vitamin C) 1,000 mg PO DAILY beta carotene 25,000 mcg PO DAILY calcium carbonate (Calcium 600) 600 mg PO DAILY cholecalciferol (vitamin D3) (Vitamin D3) 50 mcg PO DAILY citalopram 20 mg PO DAILY citalopram 20 mg PO QAM fish,bora,flax oils-om3,6,9no1 1,200 mg ([place] 3-6-9) 1 cap PO DAILY garlic 1,000 mg PO DAILY lisinopril 5 mg PO QAM lorazepam 0.5 mg PO BEDTIME lycopene 40 mg PO DAILY pumpkin seed extract 1,000 mg PO DAILY resveratrol 250 mg PO DAILY selenium 200 mcg PO DAILY trazodone 50 mg PO BEDTIME turmeric root extract 1,000 mg PO DAILY vitamin B complex 1 tab PO DAILY vitamin E 268 mg PO DAILY zinc 50 mg PO DAILY Tobacco use date assessed: 02/16/24 Fall risk assessment: No Falls in past year Last assessed Fall Risk: 02/16/24 Dental Screening Dental Screen Date: 08/11/23 HPI 6mth f/u HPI Details 83-year-old female presents to the office to discuss her chronic medical conditions. Patient is at baseline state of health. Her symptoms of back pain resolved after increasing the citalopram to 20 mg once a day. She feels her depression symptoms have also gotten better. She is more energetic and able to function and do all activities of daily living. [facility] Medical History Hearing loss History of COVID-19 Arthritis Decreased hearing HTN (hypertension) Low back pain Lumbar stenosis Generalized anxiety disorder Surgical History Hx of tonsillectomy Hx of bilateral cataract extraction H/O colonoscopy History of hysterectomy Family History Mother No problems noted. Father No problems noted. Social History Housing: House Are you a primary health care assistant to a significant other at home: No Do you presently have visiting nurse or other home services: No Alcohol intake: current Alcohol intake frequency: holidays/special occasions only Patient Tobacco Use Status: Former Tobacco user Tobacco use type: Cigarette Years Smoked: 15 e-Cigarette/Vaping Use: Never Used Second Hand Smoke Exposure: No service: No Current occupational status: retired Cognitive needs: No Hearing needs: Yes (Hearing aide) Vision needs: No Questionnaire Thrive Questionnaire Date Thrive assessed: 08/11/23 AUDIT C Alcohol Use Questionnaire (AUDIT-C) 2. How many drinks containing alcohol do you have on a typical day when you are drinking?: 1 or 2 3. How often do you have six or more drinks on one occasion?: Less than monthly Total Score: 1 ALEX-7 AMB Questionnaire ALEX-7 Date ALEX - 7 assessed: 08/11/23 Source: Developed by Drs. Bill Alvarez, Xochitl Hammer, Enrrique Keenan and colleagues, with an educational ab from [employer]. Physical exam (Primary Care) Vital Signs: Last Vital Signs BP 120/62 02/16/24 09:55 BMI result Body Mass Index 20.7 Tobacco/Smoking Status: Tobacco use Status Tobacco use date assessed 02/16/24 02/16/24 09:58 Patient Tobacco Use Status Former Tobacco user 02/16/24 09:58 Tobacco use type Cigarette 02/16/24 09:58 e-Cigarette/Vaping Use Never Used 02/16/24 09:58 Thrive Assessment: Date of Thrive Assessment Date Thrive assessed 08/11/23 02/16/24 09:58 Const General: cooperative and healthy appearing Nutritional Appearance: well nourished Orientation/consciousness: patient oriented x3 Limitations: no limitations HENMT Head: Yes normal to inspection Eyes General: appearance normal, both eyes and all related structures Neck Neck: Yes normal visual inspection Chest Chest palpation & inspection: normal palpation of entire chest wall Resp Effort & Inspection: normal respiratory effort Neuro General: patient oriented x3 Coding Level of Care Code Est Pt Level 4 (59118) Complex EM visit Add On G2211 Diagnoses Generalized anxiety disorder F41.1 Essential hypertension I10 Lumbar stenosis with neurogenic claudication M48.062 Assessment & Plan Assessment & Plan (1) Generalized anxiety disorder: Code(s): F41.1 - Generalized anxiety disorder Category: Medical Plan: Continue citalopram at 20 mg once a day. Encouraged patient to be compliant with medications. (2) Essential hypertension: Code(s): I10 - Essential (primary) hypertension Category: Medical Plan: Blood pressure is in range. Blood work has been ordered. Will call with the results. Continue medications at same dosage. (3) Lumbar stenosis with neurogenic claudication: Code(s): M48.062 - Spinal stenosis, lumbar region with neurogenic claudication Category: Medical Plan: Back pain symptoms have resolved. Medications: New citalopram 20 mg PO DAILY 90 tabs 1RF Refilled lorazepam 0.5 mg PO BEDTIME 30 tabs 0RF
[2024-02-16 09:55] VITALS: BP 120/62; BMI 20.7
== END 2024-02-16 10:44 | disposition home or self-care (01) ==
PROVIDERS: PCP Internal Medicine; Visit Provider Internal Medicine
DX: F41.1 Generalized anxiety disorder (principal); I10 Essential (primary) hypertension; M48.062 Spinal stenosis, lumbar region with neurogenic claudication

== ENCOUNTER → 2024-02-16 09:50 | Outpatient (BNVA) | payer MEDICARE, OTHER, SELFPAY | PROVIDERS: PCP Internal Medicine; Visit Provider Internal Medicine | DX: F41.1 Generalized anxiety disorder (principal); I10 Essential (primary) hypertension; M48.062 Spinal stenosis, lumbar region with neurogenic claudication | CPT/HCPCS: 99212 ==

== ENCOUNTER 2024-02-22 08:44 | Outpatient (REF) | payer MEDICARE, OTHER, SELFPAY ==
[2024-02-22 10:29] LABS: Hemoglobin 13.9 g/dl (12.0-16.0); Mean Corpuscular HGB Conc 33.9 g/dl (31.0-35.0); Mean Corpuscular Hemoglobin 32.6 pg (27.0-33.0); Mean Platelet Volume 9.4 fL (9.4-12.3); Platelet Count 256 X10*3/uL (160-400); Red Blood Count 4.27 X10*6/uL (4.20-5.50); Red Cell Distribution Width 13.5 % (11.0-16.0); White Blood Count 3.6 X10*3/uL (4.8-10.8)
[2024-02-22 10:59] LABS: Alanine Aminotransferase 17 U/L (0-31); Alkaline Phosphatase 59 U/L (39-117); Anion Gap 6 (12-20); Aspartate Amino Transferase 23 U/L (5-31); Bilirubin Direct 0.2 mg/dL (0.0-0.5); Bilirubin Total 0.4 mg/dL (0.0-1.0); Blood Urea Nitrogen 13 mg/dL (9-16); C Reactive Protein 0.13 mg/dL (< or = 0.50); Calcium 8.6 mg/dL (8.4-10.2); Carbon Dioxide 32 mmol/L (22-29); Chloride 107 mmol/L (96-108); Cholesterol 234 mg/dL (<200); Estimated Glomerular Filt Rate > 60; Glucose Random 92 mg/dL (60-115); HDL Cholesterol 102 mg/dL (>40); LDL Cholesterol Calculated 119 mg/dL (<100); Potassium 4.1 mmol/L (3.3-5.1); Sodium 141 mmol/L (135-145); Total Protein 6.5 g/dL (6.5-8.0); Triglycerides 67 mg/dL (<150)
[2024-02-22 11:02] LABS: Thyroid Stimulating Hormone 1.12 uIU/mL (0.32-4.0)
== END 2024-02-22 08:45 | disposition home or self-care (01) ==
LOC: HO.HMGCLDS 08:44
PROVIDERS: PCP Internal Medicine; Visit Provider Internal Medicine
DX: M54.9 Dorsalgia, unspecified (principal); I10 Essential (primary) hypertension
CPT/HCPCS: 36415; 80048; 80061; 80076; 84443; 85027; 86140

== ENCOUNTER 2024-08-30 09:52 | Outpatient (AMB) | payer MEDICARE, OTHER, SELFPAY ==
--- NOTE | 2024-08-30 09:57 | MHC.PC.OV ---
Vital Signs 08/30/24 09:59 Height 5 ft 3 in Weight 115 lb 4 oz BMI 20.4 BP 100/66 Blood Pressure Location Lt brachial Position Sitting Pulse 64 Pulse Source Pulse Oximeter Temp 97.3 F Temp Source Temporal Artery Scan Pulse Oximetry (%) 96 Oxygen Delivery Method Room Air Intake Visit Reasons: 6mth f/u Intake Note: Patient is here to follow up on Lower back pain, HTN. 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: Present Accompanied by: Spouse Allergies No Known Allergies Allergy (Mild, Verified 08/30/24 09:58) NONE Tobacco use date assessed: 08/30/24 Fall risk assessment: No Falls in past year Last assessed Fall Risk: 08/30/24 Dental Screening Dental Screen Date: 08/30/24 Did you have a dental visit in the last 12 months?: Yes Did you have a dental problem in the last 6 months where you did not have access to dental care?: No Was dental information given to patient?: Patient has dentist [facility] Medical History Hearing loss History of COVID-19 Arthritis Decreased hearing HTN (hypertension) Low back pain Lumbar stenosis Generalized anxiety disorder Surgical History Hx of tonsillectomy Hx of bilateral cataract extraction H/O colonoscopy History of hysterectomy Family History Mother No problems noted. Father No problems noted. Social History Housing: House Are you a primary care transition manager to a significant other at home: No Do you presently have visiting nurse or other home services: No Alcohol intake: current Alcohol intake frequency: holidays/special occasions only Patient Tobacco Use Status: Former Tobacco user Tobacco use type: Cigarette Years Smoked: 15 e-Cigarette/Vaping Use: Never Used Second Hand Smoke Exposure: Yes service: No Current occupational status: retired Cognitive needs: No Hearing needs: Yes (Hearing aide) Vision needs: No Questionnaire PHQ-9 Over the last 2 weeks, how often have you been bothered by any of the following problems? 1. Little interest or pleasure in doing things: not at all 2. Feeling down, depressed, or hopeless: not at all 3. Trouble falling or staying asleep, or sleeping too much: not at all 4. Feeling tired or having little energy: not at all 5. Poor appetite or overeating: not at all 6. Feeling bad about yourself - or that you are a failure or have let yourself or your family down: not at all 7. Trouble concentrating on things, such as reading the newspaper or watching television: not at all 8. Moving or speaking so slowly that other people could have noticed. Or the opposite - being so fidgety or restless that you have been moving around a lot more than usual: not at all 9. Thoughts that you would be better off or of hurting yourself in some way: not at all Total score: 0 Depression Screening Interpretation: Negative Depression Screening Done: Yes Source: Developed by Drs. Bill Alvarez, Xochitl Hammer, Enrrique Keenan and colleagues, with an educational ab from [employer]. Thrive Questionnaire Date Thrive assessed: 08/28/24 I am a: Patient What is your living situation today?: I have a steady place to live Within the past 12 months, did the food you bought not last and you didn't have the money to get more?: Never true Within the past 12 months, did you worry whether your food would run out before you got money to buy more?: Never true Do you have trouble paying for medicines?: No Do you have trouble getting transportation to medical appointments?: No Do you have trouble paying your heating and electricity bill?: No Do you have trouble taking care of your child, family member or friend?: No Do you have trouble with day-to-day activities such as bathing, preparing meals, shopping, managing finances, etc.?: No Are you currently unemployed and looking for a job?: No Are you interested in more education?: No Please select the resources that you would like help with: None Currently or been in a relationship where the following occur: No concerns reported THRIVE Score: 0 AUDIT C Alcohol Use Questionnaire (AUDIT-C) 1. How often do you have a drink containing alcohol?: Monthly or less 2. How many drinks containing alcohol do you have on a typical day when you are drinking?: 1 or 2 3. How often do you have six or more drinks on one occasion?: Never Total Score: 1 ALEX-7 AMB Questionnaire ALEX-7 Date ALEX - 7 assessed: 08/30/24 Feeling nervous, anxious, or on edge: 0 = Not at all Not being able to stop or control worryin = Not at all Worrying too much about different things: 0 = Not at all Trouble relaxin = Not at all Being so restless that it is hard to sit still: 0 = Not at all Becoming easily annoyed or irritable: 0 = Not at all Feeling afraid as if something awful might happen: 0 = Not at all Total ALEX-7 score (0-4 normal; 5-9 mild; 10-14 moderate; 15-21 severe): 0 Source: Developed by Drs. Bill Alvarez, Xochitl Hammer, Enrrique Keenan and colleagues, with an educational ab from [employer]. Physical exam (Primary Care) Vital Signs: Last Vital Signs Temp 97.3 F 08/30/24 09:59 Pulse 64 08/30/24 09:59 BP 100/66 08/30/24 09:59 Pulse Ox 96 08/30/24 09:59 Oxygen Delivery Method Room Air 08/30/24 09:59 BMI result Body Mass Index 20.4 Tobacco/Smoking Status: Tobacco use Status Tobacco use date assessed 08/30/24 08/30/24 10:09 Patient Tobacco Use Status Former Tobacco user 08/30/24 10:09 Tobacco use type Cigarette 08/30/24 10:09 e-Cigarette/Vaping Use Never Used 08/30/24 10:09 PHQ-9: PHQ-9 Score PHQ-9: Total score 0 08/30/24 10:09 Depression Screening Interpretation: Negative Thrive Assessment: Date of Thrive Assessment Date Thrive assessed 08/28/24 08/30/24 10:09 Currently or been in a relationship where the following occur: No concerns reported Coding Level of Care Code Est Pt Level 4 (49499) Complex EM visit Add On G2211 Diagnoses Essential hypertension I10 Assessment & Plan Assessment & Plan (1) Essential hypertension: Code(s): I10 - Essential (primary) hypertension Category: Medical Plan: BP is in range. Continue meds at same dosage. Plan History of Present Illness - The patient is an 84-year-old female presenting for a routine check-up and discussion of recent blood work results. - Elevated carbon dioxide level was noted in recent blood work, but it was explained that this finding is not significant in the absence of other abnormalities. - The patient reports occasional coughing but was reassured that it is unrelated to the elevated carbon dioxide level. - The patient adheres to her medication regimen, except for lorazepam, which she seldom takes. - Preventative care measures discussed include advanced care planning and healthcare proxy arrangements. Social History - The patient engages in yard work and field work as part of her routine activities. Review of Systems - Respiratory: Reports occasional cough. Denies any other respiratory symptoms. Physical Exam General: Cooperative and healthy appearing Nutritional Appearance: Well nourished Orientation/consciousness: Patient oriented x3 Limitations: No limitations Head: Normal to inspection General: Appearance normal, both eyes and all related structures Neck: Normal visual inspection Chest: Normal palpation of entire chest wall Respiratory: Patient reports coughing a little bit later, but no significant concerns noted. ormal respiratory effort Neurology: Patient oriented x3 Results - Labs: Elevated carbon dioxide level noted in recent blood work, deemed insignificant without other abnormalities. Plan 1. Elevated Carbon Dioxide Level In Blood Work - No further action required as it is not clinically significant in the absence of other abnormalities. 2. Preventative Care: Advanced Care Planning Discussion - Discussed the importance of advanced care planning and healthcare proxy arrangements. - Patient was informed that these decisions can be changed at any time. Discussion Notes During the visit, I explained to the patient that the elevated carbon dioxide level in her blood work is not significant without other abnormalities. We discussed the importance of advanced care planning and healthcare proxy arrangements, emphasizing that these decisions can be revised at any time. Patient Instructions - Continue taking medications as prescribed, except lorazepam as needed. - Complete fasting blood work as ordered. - Review and complete advanced care planning forms at home. Orders: Orders Lipid Panel Today I10 - Essential (primary) hypertension Thyroid Stimulating Hormone Today I10 - Essential (primary) hypertension UA and rflx microscopic Today I10 - Essential (primary) hypertension Basic Metabolic Panel Today I10 - Essential (primary) hypertension Complete Blood Count no Diff Today I10 - Essential (primary) hypertension Liver Panel Today I10 - Essential (primary) hypertension Medications: Refilled lisinopril 5 mg PO QAM 90 tabs 1RF I10 - Essential (primary) hypertension
[2024-08-30 09:59] VITALS: BP 100/66; PULSE 64; TEMP 36.3; O2SAT 96; BMI 20.4
== END 2024-08-30 10:51 | disposition home or self-care (01) ==
LOC: HO.HMCH 09:53
PROVIDERS: PCP Internal Medicine; Visit Provider Internal Medicine
DX: I10 Essential (primary) hypertension (principal)

== ENCOUNTER → 2024-08-30 09:52 | Outpatient (BNVA) | payer MEDICARE, OTHER, SELFPAY | PROVIDERS: PCP Internal Medicine; Visit Provider Internal Medicine | DX: I10 Essential (primary) hypertension (principal) | CPT/HCPCS: 99212 ==

== ENCOUNTER 2024-08-30 12:38 | Outpatient (REF) | payer SELFPAY ==
--- NOTE | 2024-08-30 14:26 | MHC.AU.HA3 ---
Hearing Instrument Follow-Up- Binaural Date of Visit: 08/30/24 Right Ear: Drew, Model, Color, Serial Number: Christal Heino P50-[id number] SN: [id number] Color: Sand Beige Mobile Heavy Equipment Mechanic Repair Warranty: 10/13/2023 Mobile Heavy Equipment Mechanic Loss and Damage Warranty: 10/13/2023 [facility] Service Plan: 10/13/2023 Battery Size: Rechargeable Supervisor Sewer Maintenance/Slim Tube: 2M Earmold/Dome/CShell/SlimTip:cShell 0M state auditor #[id number] Service Warranty 11/13/2020 : NOT USING, currently wears 6mm dbl ndiaye oticon domes with retention tail Type of Wax Guard: CeruStop Dispensed By: [facility] Date of Fittin07/24/2020 Left Ear: Drew, Model, Color, Serial Number: Christal Heino P50-R SN: [id number] Color: Sand Beige Mobile Heavy Equipment Mechanic Repair Warranty: 10/13/2023 Mobile Heavy Equipment Mechanic Loss and Damage Warranty: 10/13/2023 [facility] Service Plan: 10/13/2023 Battery Size: Rechargeable Supervisor Sewer Maintenance/Slim Tube: 2M Earmold/Dome/CShell/SlimTip: cShell 0M state auditor #[id number], Service Warranty 11/13/2020 : NOT USING, currently wears 6mm dbl ndiaye oticon domes with retention tail Type of Wax Guard: CeruStop Dispensed By: [facility] Date of Fittin07/24/2020 Follow-Up Summary: Reported left PAULSON will not charge, LED stays red when in film mounter. Confirmed in office. When PAULSON put in film mounter, LED turns green for one second then red. PAULSON will not turn on; however, will connect to [employer]. Able to update firmware of both HAs, battery level showing good, 100%. Still would not charge or turn on. Called [facility]. Per Regine, tried factory reset, unsuccessful. Recommended sending PAULSON in for repair. Cleaned right PAULSON - replaced dome, wax guard, and retention tail. Sent left PAULSON to [facility]. Quoted $330.00 at picker/puller. Will need appointment, wants programming adjustments, especially for more adverse listening environments (e.g., congregational). Recommendations: Patient will be contacted when materials have arrived. Recommendations (Other): Needs appointment Diagnosis Code(s): Primary Diagnosis: H90.3 Bilateral Sensorineural Hearing Loss Signature: Provider: Barbra Holcomb, [facility]
== END 2024-08-30 12:39 | disposition home or self-care (01) ==
LOC: HO.HAP 12:38
PROVIDERS: Visit Provider Internal Medicine
DX: Z13.89 Encounter for screening for other disorder (principal)

== ENCOUNTER 2024-09-04 08:32 | Outpatient (REF) | payer MEDICARE, OTHER, SELFPAY ==
[2024-09-04 10:19] LABS: Hematocrit 42.1 % (37.0-47.0); Hemoglobin 14.0 g/dl (12.0-16.0); Mean Corpuscular HGB Conc 33.3 g/dl (31.0-35.0); Mean Corpuscular Hemoglobin 32.0 pg (27.0-33.0); Mean Corpuscular Volume 96.1 fL (80.0-98.0); NRBC Abs Auto 0.000 X10*3/uL (0.0-0.012); NRBC Pct Auto 0.0 /100WBC (0.0-0.2); Platelet Count 262 X10*3/uL (160-400); Red Blood Count 4.38 X10*6/uL (4.20-5.50); White Blood Count 3.6 X10*3/uL (4.8-10.8)
[2024-09-04 10:20] LABS: Appearance Urine Cloudy; Glucose Urine UA Negative (Negative); PH 8.5 (5.0-9.0); Specific Gravity - Urine 1.020 (1.005-1.025)
[2024-09-04 11:00] LABS: Anion Gap 12 (12-20); Thyroid Stimulating Hormone 1.20 uIU/mL (0.32-4.0)
[2024-09-04 11:08] LABS: Alanine Aminotransferase 21 U/L (0-31); Albumin Level 4.1 g/dL (3.5-5.0); Alkaline Phosphatase 63 U/L (39-117); Aspartate Amino Transferase 28 U/L (5-31); Blood Urea Nitrogen 17 mg/dL (9-16); Calcium 9.0 mg/dL (8.4-10.2); Carbon Dioxide 28 mmol/L (22-29); Chloride 106 mmol/L (96-108); Cholesterol 240 mg/dL (<200); Estimated Glomerular Filt Rate > 60; HDL Cholesterol 99 mg/dL (>40); Potassium 3.9 mmol/L (3.3-5.1); Sodium 142 mmol/L (135-145); Total Protein 6.5 g/dL (6.5-8.0); Triglycerides 78 mg/dL (<150)
== END 2024-09-04 08:33 | disposition home or self-care (01) ==
LOC: HO.HMGCLDS 08:32
PROVIDERS: PCP Internal Medicine; Visit Provider Internal Medicine
DX: I10 Essential (primary) hypertension (principal)
CPT/HCPCS: 36415; 80048; 80061; 80076; 81003; 84443; 85027

== ENCOUNTER 2024-09-13 14:59 | Outpatient (REF) | payer SELFPAY | END 2024-09-13 15:00 | disposition home or self-care (01) | LOC: HO.HAP 14:59 | PROVIDERS: Visit Provider Internal Medicine | DX: Z46.1 Encounter for fitting and adjustment of hearing aid (principal); H90.3 Sensorineural hearing loss, bilateral | CPT/HCPCS: V5014 ==